=== PATIENT | male | born 1965 | race Two or more races ===

== ENCOUNTER 2017-06-15 07:56 | Emergency (ER) | payer BC, OTHER ==
[2017-06-15 08:18] VITALS: BP 135/68; PULSE 65; TEMP 97.6; BMI 40.7
[2017-06-15] MEDS ORDERED: KETOROLAC TROMETHAMINE 60 MG/2 ML VIAL IM ONE (08:28)
--- NOTE | 2017-06-15 08:32 | PDOC ---
History of Present Illness - General Chief Complaint: Injury Stated Complaint: LEFT ARM PAIN Time Seen by Provider: 06/15/17 08:16 History Source: Patient Exam Limitations: No Limitations - History of Present Illness Initial Comments: 06/15/17 08:27 After lifting heavy laundry bag 2 days ago patient now here with complaints of shoulder and upper back pain with radiation to his left upper arm. States took Aleve with some relief, but woke up this morning and felt the spasm was worse. Denies numbness or tingling to hand, no fever, no cough, no chest pain or palpitations. Occurred: reports: other (3 days) Severity: reports: moderate Pain Location: reports: back, chest, neck Loss of Consciousness: no loss of consciousness Associated Symptoms (Fall): denies symptoms Past History - Travel Traveled outside of the country in the last 30 days: No Close contact w/someone who was outside of country & ill: No - Past Medical History Allergies/Adverse Reactions: Allergies Allergy/AdvReac Type Severity Reaction Status Date / Time No Known Allergies Allergy Verified 06/15/17 08:01 Home Medications: Ambulatory Orders Aspirin [ASA -] 81 mg PO DAILY 06/10/12 Insulin Glargine,Hum.rec.anlog [Lantus Solostar PEN -] 50 units SQ BID 06/10/12 Simvastatin [Zocor -] 20 mg PO HS 06/10/12 Lisinopril [Prinivil] 10 mg PO DAILY 06/22/13 metFORMIN HCL [Glucophage -] 1,000 mg PO BID@0700,1630 #60 tablet 04/03/15 Cyclobenzaprine HCl 10 mg PO Q8H PRN #14 tablet 06/15/17 Anemia: No Asthma: No Cancer: No Cardiac Disorders: No CVA: No COPD: No CHF: No Dementia: No Diabetes: Yes GI Disorders: Yes Disorders: No HTN: Yes Hypercholesterolemia: Yes Kidney Stones: Yes Liver Disease: No Seizures: No Thyroid Disease: No - Surgical History Abdominal Surgery: Yes Cardiac Surgery: No Cholecystectomy: Yes Lung Surgery: No Neurologic Surgery: No Orthopedic Surgery: Yes (Left knee repair) - Immunization History Immunization Up to Date: Yes - Suicide/Smoking/Psychosocial Hx Smoking Status: No Smoking History: Never smoked Have you smoked in the past 12 months: No Number of Cigarettes Smoked Daily: 0 Cigars Per Day: 0 Information on smoking cessation initiated: No Hx Alcohol Use: No Drug/Substance Use Hx: No Substance Use Type: None Hx Substance Use Treatment: No Review of Systems - Review of Systems Able to Perform ROS?: Yes Is the patient limited Bulgarian proficient: Yes Constitutional: Yes: Symptoms Reported, See HPI, Malaise HEENTM: No: Symptoms Reported Respiratory: No: Symptoms reported ABD/GI: No: Symptoms Reported Musculoskeletal: Yes: Symptoms Reported, See HPI, Back Pain All Other Systems: Reviewed and Negative *Physical Exam - Vital Signs Last Vital Signs Temp Pulse Resp BP Pulse Ox 97.6 F 65 19 135/68 97 06/15/17 07:58 06/15/17 07:58 06/15/17 07:58 06/15/17 07:58 06/15/17 07:58 - Physical Exam General Appearance: Yes: Nourished, Appropriately Dressed, Apparent Distress, Mild Distress HEENT: positive: HOLLY, Normal ENT Inspection, TMs Normal, Pharynx Normal Neck: positive: Tender, Other (mildly tender with palpable spasm noted to the paravertebral spinous muscles of left side upper back, point tenderness reproduced with pressure to sternocleidomastoid insertion and extending up into scalp. Range of motion to left arm and shoulder reproduces pain and upper back. 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, Fully Oriented, Alert, Normal Mood/ Affect, Normal Response, Motor Strength 5/5 Progress Note - Progress Note Progress Note: Muscle strain upper back, will treat with NSAIDs and cyclobenzaprine *DC/Admit/Observation/Transfer Diagnosis at time of Disposition: Muscle strain - Discharge Dispostion Disposition: HOME Condition at time of disposition: Stable Admit: No - Referrals Referrals: Stevie Lobato MD [Primary Care Provider] - - Patient Instructions Printed Discharge Instructions: DI for Back Spasm Additional Instructions: Rest, no heavy lifting or exercise until pain is resolved Hot soaks to neck and low back as often as possible/hot showers or Jacuzzis No massage or therapy until spasm is gone Continue ibuprofen 2-200 mg tablets every 6 hours for the next 3 days then as needed for pain and swelling Cyclobenzaprine 1-10mg every 8 hours as needed for spasm If not significant improvement within 24 hours with medication and rest regime, followup with private physician for change in medications and /or therapy. - Post Discharge Activity
[2017-06-15] MEDS ORDERED: KETOROLAC TROMETHAMINE 60 MG/2 ML VIAL ONE (08:33)
== END 2017-06-15 08:40 | disposition home or self-care (01) ==
LOC: JERFT 07:56 → JER 07:56 → JERFT 08:40
PROC: 3E0233Z Introduction of Anti-inflammatory into Muscle, Percutaneous Approach (ICD-10-PCS; principal; 2017-06-15)
DX: S29.012A Strain of muscle and tendon of back wall of thorax, initial encounter (principal); X58.XXXA Exposure to other specified factors, initial encounter; Y93.89 Activity, other specified; Y92.9 Unspecified place or not applicable; E11.9 Type 2 diabetes mellitus without complications; I10 Essential (primary) hypertension; E78.00 Pure hypercholesterolemia, unspecified
CPT/HCPCS: 99281-25

== ENCOUNTER 2017-08-16 17:34 | Inpatient (IN) | payer BC, OTHER ==
--- NOTE | 2017-08-16 17:41 | PDOC ---
Rapid Medical Evaluation Chief Complaint: Abscess Boil Time Seen by Provider: 08/16/17 17:37 Medical Evaluation: Allergies Allergy/AdvReac Type Severity Reaction Status Date / Time No Known Allergies Allergy Verified 08/16/17 17:36 08/16/17 17:38 Pt with PMH of diabetes, presents to the ED c.o abscess to the genital region for 9 days. Pt. thought it would get better. Bleeding now. Exam: ambulatory, NAD, will not sit down Orders: labs, iv insert Pt. to proceed to Main ED for further evaluation
[2017-08-16 19:09] LABS: BASO % 0.8 % (0-2.0); EOS % 1.3 % (0-4.5); HEMATOCRIT 40.8 % (35.4-49); HEMOGLOBIN 13.8 GM/dL (11.7-16.9); LYMPH % 19.1 % (8-40); MCH 28.7 pg (25.7-33.7); MCHC 33.8 g/dl (32.0-35.9); MEAN PLT VOLUME 7.8 fl (7.5-11.1); MONO % 8.2 % (3.8-10.2); NEUT % 70.6 % (42.8-82.8); PLATELET COUNT 238 K/MM3 (134-434); RDW 12.9 % (11.9-15.9); WHITE BLOOD COUNT 11.2 K/mm3 (4.0-10.0)
[2017-08-16 19:25] LABS: URINE APPEARANCE CLEAR; URINE BILIRUBIN NEGATIVE (<2.0 mg/dL); URINE COLOR STRAW; URINE GLUCOSE (UA) 3+ (NEGATIVE); URINE KETONE NEGATIVE (NEGATIVE); URINE LEUK ESTERASE NEGATIVE (NEGATIVE); URINE NITRITE NEGATIVE (NEGATIVE); URINE PROTEIN NEGATIVE (NEGATIVE); URINE UROBILINOGEN NEGATIVE mg/dL (0.2-1.0)
[2017-08-16 19:27] LABS: INR 1.04 (0.82-1.09); PROTHROMBIN TIME (PATIENT) 11.7 SEC (9.7-13.0)
[2017-08-16 19:39] LABS: ALBUMIN 3.6 g/dl (3.4-5.0); ALK PHOS 77 U/L (45-117); ANION GAP 8 (8-16); BILIRUBIN,TOTAL 0.4 mg/dL (0.2-1.0); BLOOD UREA NITROGEN 18 mg/dL (7-18); CALCIUM 8.6 mg/dL (8.5-10.1); CHLORIDE 106 mmol/L (98-107); CO2 23 mmol/L (21-32); CREATININE 0.8 mg/dL (0.7-1.3); GLUCOSE,RANDOM 176 mg/dL (74-106); POTASSIUM 4.6 mmol/L (3.5-5.1); SGOT/AST 13 U/L (15-37); SGPT/ALT 18 U/L (12-78); SODIUM 137 mmol/L (136-145); TOT PROT 7.9 g/dl (6.4-8.2)
--- NOTE | 2017-08-16 21:36 | PDOC ---
*Physical Exam - Vital Signs Last Vital Signs Temp Pulse Resp BP Pulse Ox 98.7 F 103 H 18 156/71 100 08/16/17 17:37 08/16/17 17:37 08/16/17 17:37 08/16/17 17:37 08/16/17 17:37 ED Treatment Course - LABORATORY CBC & Chemistry Diagram: 08/18/17 06:20 08/18/17 06:20 - ADDITIONAL ORDERS Additional order review: Laboratory Results 08/16/17 08/16/17 08/16/17 19:14 18:59 18:59 PT with INR 11.70 INR 1.04 Sodium 137 Potassium 4.6 Chloride 106 Carbon Dioxide 23 Anion Gap 8 BUN 18 D Creatinine 0.8 D Creat Clearance w eGFR > 60 Random Glucose 176 H D Calcium 8.6 Total Bilirubin 0.4 D AST 13 L D ALT 18 D Alkaline Phosphatase 77 D Total Protein 7.9 D Albumin 3.6 D Urine Color Straw Urine Appearance Clear Urine pH 5.0 Ur Specific [place] 1.031 Urine Protein Negative Urine Glucose (UA) 3+ H Urine Ketones Negative Urine Blood Negative Urine Nitrite Negative Urine Bilirubin Negative Urine Urobilinogen Negative Ur Leukocyte Esterase Negative 08/16/17 18:59 RBC 4.80 MCV 85.0 MCHC 33.8 RDW 12.9 MPV 7.8 D Neutrophils % 70.6 D Lymphocytes % 19.1 D Monocytes % 8.2 Eosinophils % 1.3 Basophils % 0.8 D Medical Decision Making - Medical Decision Making 08/16/17 21:36 Pt seen by Midlevel Provider under my direct supervision Ancillary studies reviewed I agree with plan as outlined by Midlevel Provider *DC/Admit/Observation/Transfer Diagnosis at time of Disposition: Perineal abscess - Discharge Dispostion Condition at time of disposition: Stable - Prescriptions - Referrals - Patient Instructions - Post Discharge Activity
--- NOTE | 2017-08-16 21:44 | PDOC ---
History of Present Illness - General Chief Complaint: Abscess Boil Stated Complaint: CYST Time Seen by Provider: 08/16/17 17:37 History Source: Patient Exam Limitations: No Limitations - History of Present Illness Initial Comments: CHIEF COMPLAINT: 52 y/o male with PMH HTN, HLD, IDDM c/o right scrotal abscess x 9 days. HISTORY OF PRESENT ILLNESS: The patient states that since this morning the area has been draining. He denies fever, testicular swelling or tenderness. Vital signs on arrival are notable for pulse of 103. REVIEW OF SYSTEMS: GENERAL/CONSTITUTIONAL: No fever/chills. No weakness. No weight change. HEAD, EYES, EARS, NOSE AND THROAT: No change in vision. No ear pain or discharge. No sore throat. CARDIOVASCULAR: No chest pain or shortness of breath. RESPIRATORY: No cough, wheezing, or hemoptysis. GASTROINTESTINAL: No abd pain, nausea, vomiting, diarrhea. GENITOURINARY: No dysuria, frequency, or change in urination. MUSCULOSKELETAL: No joint or muscle swelling or pain. No neck or back pain. SKIN: +painful abscess that is draining in right testicle region NEUROLOGIC: No headache, vertigo, loss of consciousness, or loss of sensation. PHYSICAL EXAM: GENERAL: The patient is awake, alert, and fully oriented, in no acute distress. HEAD: Normal with no signs of trauma. ENT: Pupils equal, round and reactive to light, extraocular movements intact, sclera anicteric, conjunctiva clear. Neck supple. LUNGS: Clear to auscultation bilaterally. Normal excursion. No respiratory distress or use of accessory muscles. CV: tachycardic with regular rhythm, S1/S2, no MRG. Cap refill < 2 sec. ABDOMEN: Soft, non-distended, non-tender even to deep palpation, no hepatomegaly or splenomegaly, no masses. EXTREMITIES: Normal range of motion, no edema. NEUROLOGICAL: Normal speech, normal gait. CN II-XII grossly intact. SKIN: 4cm abscess to right perineal area with central opening that is actively draining serosangenous fluid Past History - Past Medical History Allergies/Adverse Reactions: Allergies Allergy/AdvReac Type Severity Reaction Status Date / Time No Known Allergies Allergy Verified 08/16/17 17:36 Home Medications: Ambulatory Orders Aspirin [ASA -] 81 mg PO DAILY 06/10/12 Insulin Glargine,Hum.rec.anlog [Lantus Solostar PEN -] 50 units SQ BID 06/10/12 Simvastatin [Zocor -] 20 mg PO HS 06/10/12 Lisinopril [Prinivil] 10 mg PO DAILY 06/22/13 metFORMIN HCL [Glucophage -] 1,000 mg PO BID@0700,1630 #60 tablet 04/03/15 Cyclobenzaprine HCl 10 mg PO Q8H PRN #14 tablet 06/15/17 Anemia: No Asthma: No Cancer: No Cardiac Disorders: No CVA: No COPD: No CHF: No DVT: No Dementia: No Diabetes: Yes GI Disorders: Yes Disorders: No HTN: Yes Hypercholesterolemia: Yes Kidney Stones: Yes Liver Disease: No Seizures: No Thyroid Disease: No - Surgical History Abdominal Surgery: Yes Cardiac Surgery: No Cholecystectomy: Yes Lung Surgery: No Neurologic Surgery: No Orthopedic Surgery: Yes (Left knee repair) - Immunization History Immunization Up to Date: Yes - Suicide/Smoking/Psychosocial Hx Smoking Status: No Smoking History: Never smoked Have you smoked in the past 12 months: No Number of Cigarettes Smoked Daily: 0 Cigars Per Day: 0 Information on smoking cessation initiated: No Hx Alcohol Use: No Drug/Substance Use Hx: No Substance Use Type: None Hx Substance Use Treatment: No *Physical Exam - Vital Signs Last Vital Signs Temp Pulse Resp BP Pulse Ox 98.7 F 103 H 18 156/71 100 08/16/17 17:37 08/16/17 17:37 08/16/17 17:37 08/16/17 17:37 08/16/17 17:37 ED Treatment Course - LABORATORY CBC & Chemistry Diagram: 08/16/17 18:59 08/16/17 18:59 - ADDITIONAL ORDERS Additional order review: Laboratory Results 08/16/17 08/16/17 08/16/17 19:14 18:59 18:59 PT with INR 11.70 INR 1.04 Sodium 137 Potassium 4.6 Chloride 106 Carbon Dioxide 23 Anion Gap 8 BUN 18 D Creatinine 0.8 D Creat Clearance w eGFR > 60 Random Glucose 176 H D Calcium 8.6 Total Bilirubin 0.4 D AST 13 L D ALT 18 D Alkaline Phosphatase 77 D Total Protein 7.9 D Albumin 3.6 D Urine Color Straw Urine Appearance Clear Urine pH 5.0 Ur Specific [place] 1.031 Urine Protein Negative Urine Glucose (UA) 3+ H Urine Ketones Negative Urine Blood Negative Urine Nitrite Negative Urine Bilirubin Negative Urine Urobilinogen Negative Ur Leukocyte Esterase Negative 08/16/17 18:59 RBC 4.80 MCV 85.0 MCHC 33.8 RDW 12.9 MPV 7.8 D Neutrophils % 70.6 D Lymphocytes % 19.1 D Monocytes % 8.2 Eosinophils % 1.3 Basophils % 0.8 D Medical Decision Making - Medical Decision Making A/P: 52 y/o male, insulin dependent diabetic, with a draining right perineal abscess. Labs were ordered in triage. WBC count of 11.2; mildly tachycardic. Will do wound culture Spoke with Dr. Lobato, patient's PMD, and he would like him admitted to Dr. Crowe. Dr. Crowe's patients being covered by Hospitalist. Microblogged hospitalist. Patient admitted to Hospitalist service. IV Clindamycin ordered. *DC/Admit/Observation/Transfer Diagnosis at time of Disposition: Perineal abscess - Discharge Dispostion Condition at time of disposition: Stable Decision to Admit order: Yes - Referrals - Patient Instructions - Post Discharge Activity
--- NOTE | 2017-08-16 22:32 | HP ---
CHIEF COMPLAINT: Scrotal Abscess, Pain PCP: Dr. Tan HISTORY OF PRESENT ILLNESS: 52 y/o man with a PMH IDDM, HTN, HLD. Who presents to the ED with pain, drainage from scrotal abscess x 9 days. Patient reports it started as a pimple to the scrotal region and became bigger over time. He reports having his squeezing the abscess and having bloody then white drainage coming out. Patient reports increase pain when walking and sitting. Patient denies fever and chills. ER course was notable for: (1) WBC 11.0 (2) (3) Recent Travel: None PAST MEDICAL HISTORY: See HPI PAST SURGICAL HISTORY: Cholecystectomy Social History: Smoking: Never Alcohol: None Drugs: None Family History: Allergies No Known Allergies Allergy (Verified 08/16/17 17:36) HOME MEDICATIONS: Home Medications Medication Instructions Recorded Aspirin [ASA -] 81 mg PO DAILY 06/10/12 Insulin Glargine,Hum.rec.anlog 50 units SQ BID 06/10/12 [Lantus Solostar PEN -] Simvastatin [Zocor -] 20 mg PO HS 06/10/12 Lisinopril [Prinivil] 10 mg PO DAILY 06/22/13 metFORMIN HCL [Glucophage -] 1,000 mg PO BID@0700,1630 #60 04/03/15 tablet Cyclobenzaprine HCl 10 mg PO Q8H PRN #14 tablet 06/15/17 REVIEW OF SYSTEMS CONSTITUTIONAL: Absent: fever, chills, diaphoresis, generalized weakness, malaise, loss of appetite, weight change HEENT: Absent: rhinorrhea, nasal congestion, throat pain, throat swelling, difficulty swallowing, mouth swelling, ear pain, eye pain, visual changes CARDIOVASCULAR: Absent: chest pain, syncope, palpitations, irregular heart rate, lightheadedness , peripheral edema RESPIRATORY: Absent: cough, shortness of breath, dyspnea with exertion, orthopnea, wheezing, stridor, hemoptysis GASTROINTESTINAL: Absent: abdominal pain, abdominal distension, nausea, vomiting, diarrhea, constipation, melena, hematochezia GENITOURINARY: scrotal abscess, pain Absent: dysuria, frequency, urgency, hesitancy, hematuria, flank pain, genital pain MUSCULOSKELETAL: Absent: myalgia, arthralgia, joint swelling, back pain, neck pain SKIN: Absent: rash, itching, pallor HEMATOLOGIC/IMMUNOLOGIC: Absent: easy bleeding, easy bruising, lymphadenopathy, frequent infections ENDOCRINE: Absent: unexplained weight gain, unexplained weight loss, heat intolerance, cold intolerance NEUROLOGIC: Absent: headache, focal weakness or paresthesias, dizziness, unsteady gait, seizure, mental status changes, bladder or bowel incontinence PSYCHIATRIC: Absent: anxiety, depression, suicidal or homicidal ideation, hallucinations. PHYSICAL EXAMINATION Vital Signs - 24 hr 08/16/17 17:37 Temperature 98.7 F Pulse Rate 103 H Respiratory 18 Rate Blood Pressure 156/71 O2 Sat by Pulse 100 Oximetry (%) GENERAL: Severe Obesity, awake, alert, and fully oriented, in no acute distress. HEAD: Normal with no signs of trauma. EYES: Pupils equal, round and reactive to light, extraocular movements intact, sclera anicteric, conjunctiva clear. No lid lag. EARS, NOSE, THROAT: Ears normal, nares patent, oropharynx clear without exudates. Moist mucous membranes. NECK: Normal range of motion, supple without lymphadenopathy, JVD, or masses. LUNGS: Breath sounds equal, clear to auscultation bilaterally. No wheezes, and no crackles. No accessory muscle use. HEART: Regular rate and rhythm, normal S1 and S2 without murmur, rub or gallop. ABDOMEN: Soft, nontender, not distended, normoactive bowel sounds, no guarding, no rebound, no masses. No hepatomegaly or splenomegaly. GENITOURINARY: Erythema, swelling, tenderness to R-scrotum, non fluctuant MUSCULOSKELETAL: Normal range of motion at all joints. No bony deformities or tenderness. No CVA tenderness. UPPER EXTREMITIES: 2+ pulses, warm, well-perfused. No cyanosis. No clubbing. No peripheral edema. LOWER EXTREMITIES: 2+ pulses, warm, well-perfused. No calf tenderness. No peripheral edema. NEUROLOGICAL: Cranial nerves II-XII intact. Normal speech. Gait not observed. PSYCHIATRIC: Cooperative. Good eye contact. Appropriate mood and affect. SKIN: Warm, dry, normal turgor, no rashes or lesions noted, normal capillary refill. Laboratory Results - last 24 hr 08/16/17 08/16/17 08/16/17 18:59 18:59 18:59 WBC 11.2 H RBC 4.80 Hgb 13.8 D Hct 40.8 D MCV 85.0 MCH 28.7 MCHC 33.8 RDW 12.9 Plt Count 238 MPV 7.8 D Neutrophils % 70.6 D Lymphocytes % 19.1 D Monocytes % 8.2 Eosinophils % 1.3 Basophils % 0.8 D Nucleated RBC % 0 PT with INR 11.70 INR 1.04 Sodium 137 Potassium 4.6 Chloride 106 Carbon Dioxide 23 Anion Gap 8 BUN 18 D Creatinine 0.8 D Creat Clearance w eGFR > 60 Random Glucose 176 H D Calcium 8.6 Total Bilirubin 0.4 D AST 13 L D ALT 18 D Alkaline Phosphatase 77 D Total Protein 7.9 D Albumin 3.6 D Urine Color Urine Appearance Urine pH Ur Specific [place] Urine Protein Urine Glucose (UA) Urine Ketones Urine Blood Urine Nitrite Urine Bilirubin Urine Urobilinogen Ur Leukocyte Esterase 08/16/17 19:14 WBC RBC Hgb Hct MCV MCH MCHC RDW Plt Count MPV Neutrophils % Lymphocytes % Monocytes % Eosinophils % Basophils % Nucleated RBC % PT with INR INR Sodium Potassium Chloride Carbon Dioxide Anion Gap BUN Creatinine Creat Clearance w eGFR Random Glucose Calcium Total Bilirubin AST ALT Alkaline Phosphatase Total Protein Albumin Urine Color Straw Urine Appearance Clear Urine pH 5.0 Ur Specific [place] 1.031 Urine Protein Negative Urine Glucose (UA) 3+ H Urine Ketones Negative Urine Blood Negative Urine Nitrite Negative Urine Bilirubin Negative Urine Urobilinogen Negative Ur Leukocyte Esterase Negative ASSESSMENT/PLAN: This is a 52 y/o man with PMH IDDM, HTN, HLD. Admitted for Scrotal Abscess. Admit to M/S for Scrotal Abscess Wound culture-pending Blood culture-pending Urine culture-pending Started on ABX in ED Appreciate Surgical Consult Appreciate ID Consult Monitor CBC, BMP IV fluids Monitor vitals NPO Morphine Sulfate prn Continue Lisinopril, Statin Will hold Asa, Metformin, Insulin for now until diet resumed Preop labs EKG-pending Chest Xray-pending Scrotal US- pending DVT ppx- SCDs, Heparin SQ Code Status: Full Code Dispo: Requires Inpatient Care Problem List - Problem (1) Abscess of scrotum Code(s): N49.2 - INFLAMMATORY DISORDERS OF SCROTUM (2) Diabetes Code(s): E11.9 - TYPE 2 DIABETES MELLITUS WITHOUT COMPLICATIONS (3) HTN (hypertension) Code(s): I10 - ESSENTIAL (PRIMARY) HYPERTENSION Visit type - Emergency Visit Emergency Visit: Yes ED Registration Date: 08/16/17 Care time: The patient presented to the Emergency Department on the above date and was hospitalized for further evaluation of their emergent condition. - New Patient This patient is new to me today: Yes Date on this admission: 08/17/17 - Critical Care Critical Care patient: No Hospitalist Screening - Colonoscopy Questionnaire Colonoscopy Questionnaire: Colonoscopy Questionnaire - Patient: 50 - 75 years old and never had a screening colonoscopy: No History of colon or rectal polyps, or CA: No History of IBD, Crohn's disease or UC: No History of abdominal radiation therapy as a child: No - Relative: 1 with colon or rectal CA, or polyps at age 60 or younger: No Colon or rectal CA diagnosed at age 45 or younger: No Multiple relatives with colon or rectal CA: No - Outcome: Screening Result: Negative Screen
[2017-08-16] MEDS ORDERED: CLINDAMYCIN 600MG PREMIX IVPB 600 MG/50 ML BAG IVPB ONE (23:06)
[2017-08-17] MEDS ORDERED: CLINDAMYCIN 600MG PREMIX IVPB 0 MG/0 ML BAG IVPB ONE (00:02)
[2017-08-17] MEDS ORDERED: CLINDAMYCIN 600MG PREMIX IVPB 600 MG/50 ML BAG IVPB ONE (00:10)
[2017-08-17] MEDS ORDERED: DEXTROSE 5%-0.45% SALINE 1,000 ML IV SCH ×2 (01:30→17:45)
[2017-08-17] MEDS: CLINDAMYCIN 600MG PREMIX IVPB 600 MG/50 ML BAG IVPB SCH ×2 (06:15→11:57)
[2017-08-17] MEDS ORDERED: morphine SULFATE 4 MG/ML VIAL IVPUSH PRN (07:43)
[2017-08-17 08:32] LABS: BASO % 0.8 % (0-2.0); EOS % 2.2 % (0-4.5); HEMATOCRIT 38.5 % (35.4-49); HEMOGLOBIN 13.3 GM/dL (11.7-16.9); LYMPH % 24.9 % (8-40); MCH 29.2 pg (25.7-33.7); MCHC 34.4 g/dl (32.0-35.9); MEAN CELL VOLUME 84.8 fl (80-96); MEAN PLT VOLUME 8.1 fl (7.5-11.1); MONO % 11.4 % (3.8-10.2); NEUT % 60.7 % (42.8-82.8); PLATELET COUNT 219 K/MM3 (134-434); RBC 4.55 M/mm3 (4.00-5.60); RDW 12.9 % (11.9-15.9)
--- NOTE | 2017-08-17 08:45 | PN ---
Teaching Attending Note Name of Resident: Brittany Ramriez ATTENDING PHYSICIAN STATEMENT I saw and evaluated the patient. I reviewed the resident's note and discussed the case with the resident. I agree with the resident's findings and plan as documented. SUBJECTIVE: 52 year old male with scrotal abscess for 10 days Denies fever or severe pain OBJECTIVE: Exam right testes with fluctuant abscess no gas crepitance tender to touch ASSESSMENT AND PLAN: Diabetic with SQ scrotal abscess ? Staph GNR Doubt fasciitis Vanco Ceftriaxone metronidazole and surgery for I&D CRP [place] Problem List - Problems (1) Abscess of scrotum Code(s): N49.2 - INFLAMMATORY DISORDERS OF SCROTUM (2) Diabetes Code(s): E11.9 - TYPE 2 DIABETES MELLITUS WITHOUT COMPLICATIONS
[2017-08-17 09:28] LABS: CHLORIDE 106 mmol/L (98-107); POTASSIUM 4.1 mmol/L (3.5-5.1); SODIUM 137 mmol/L (136-145)
--- NOTE | 2017-08-17 09:50 | CONSULT ---
Consultation: REQUESTING PROVIDER: CONSULT REQUEST: We have been asked to medically evaluate this patient for scrotal abscess. HISTORY OF PRESENT ILLNESS: 52M with PMH of DM, htn, hld, presents with scrotal abscess x 10 days. Abscess started bleeding yesterday, prompting pt to call his PCP who told him to come to the ER. Pt denies trauma to the area, recent travel, bug bites, hx of skin infections. Pt reports abscess just appeared, unprovoked. Pt reports is blood glucose usually runs 150-200. Pt denies fever, chills, chest pain, sob, abdominal pain, dysuria, hematuria. REVIEW OF SYSTEMS: CONSTITUTIONAL: Absent: fever, chills, diaphoresis, generalized weakness HEENT: Absent: rhinorrhea, nasal congestion, ear pain, eye pain, visual changes CARDIOVASCULAR: Absent: chest pain, palpitations, irregular heart rate, peripheral edema RESPIRATORY: Absent: cough, shortness of breath, wheezing, stridor GASTROINTESTINAL: Absent: abdominal pain, abdominal distension, nausea, vomiting, diarrhea, constipation GENITOURINARY: Absent: dysuria, hematuria MUSCULOSKELETAL: Absent: myalgia, arthralgia, joint swelling, back pain, neck pain SKIN: scrotal abscess Absent: rash, itching, pallor HEMATOLOGIC/IMMUNOLOGIC: Absent: easy bleeding, easy bruising, lymphadenopathy, frequent infections NEUROLOGIC: Absent: headache, focal weakness or paresthesias PSYCHIATRIC: Absent: anxiety, depression PHYSICAL EXAMINATION Vital Signs - 24 hr 08/16/17 08/17/17 08/17/17 17:37 02:00 04:14 Temperature 98.7 F 98.5 F Pulse Rate 103 H Pulse Rate [ 72 Apical] Respiratory 18 16 Rate Blood Pressure 156/71 Blood Pressure 131/79 [Right Arm] O2 Sat by Pulse 100 99 99 Oximetry (%) 08/17/17 06:44 Temperature 98.2 F Pulse Rate Pulse Rate [ 66 Apical] Respiratory 20 Rate Blood Pressure Blood Pressure 115/76 [Right Arm] O2 Sat by Pulse 99 Oximetry (%) GENERAL: Awake, alert, and fully oriented, in no acute distress. LUNGS: Breath sounds equal, clear to auscultation bilaterally. No wheezes, and no crackles. No accessory muscle use. HEART: Regular rate and rhythm, normal S1 and S2 without murmur, rub or gallop. ABDOMEN: Soft, nontender, not distended, normoactive bowel sounds, no guarding. LOWER EXTREMITIES: Warm, well-perfused. No calf tenderness. No peripheral edema. PSYCHIATRIC: Cooperative. Good eye contact. Appropriate mood and affect. SKIN: Right scrotum with 5cm x 2cm abscess, indurated, no crepitus, tender to palpation, draining purulent material. Laboratory Results - last 24 hr 08/16/17 08/16/17 08/16/17 18:59 18:59 18:59 WBC 11.2 H RBC 4.80 Hgb 13.8 D Hct 40.8 D MCV 85.0 MCH 28.7 MCHC 33.8 RDW 12.9 Plt Count 238 MPV 7.8 D Neutrophils % 70.6 D Lymphocytes % 19.1 D Monocytes % 8.2 Eosinophils % 1.3 Basophils % 0.8 D Nucleated RBC % 0 PT with INR 11.70 INR 1.04 Sodium 137 Potassium 4.6 Chloride 106 Carbon Dioxide 23 Anion Gap 8 BUN 18 D Creatinine 0.8 D Creat Clearance w eGFR > 60 Random Glucose 176 H D Calcium 8.6 Total Bilirubin 0.4 D AST 13 L D ALT 18 D Alkaline Phosphatase 77 D Total Protein 7.9 D Albumin 3.6 D Urine Color Urine Appearance Urine pH Ur Specific Orange Urine Protein Urine Glucose (UA) Urine Ketones Urine Blood Urine Nitrite Urine Bilirubin Urine Urobilinogen Ur Leukocyte Esterase 08/16/17 08/17/17 08/17/17 19:14 06:38 06:38 WBC 9.0 RBC 4.55 Hgb 13.3 Hct 38.5 MCV 84.8 MCH 29.2 MCHC 34.4 RDW 12.9 Plt Count 219 MPV 8.1 Neutrophils % 60.7 Lymphocytes % 24.9 D Monocytes % 11.4 H Eosinophils % 2.2 Basophils % 0.8 Nucleated RBC % 0 PT with INR INR Sodium 137 Potassium 4.1 Chloride 106 Carbon Dioxide Anion Gap BUN Creatinine Creat Clearance w eGFR Random Glucose Calcium Total Bilirubin AST ALT Alkaline Phosphatase Total Protein Albumin Urine Color Straw Urine Appearance Clear Urine pH 5.0 Ur Specific Orange 1.031 Urine Protein Negative Urine Glucose (UA) 3+ H Urine Ketones Negative Urine Blood Negative Urine Nitrite Negative Urine Bilirubin Negative Urine Urobilinogen Negative Ur Leukocyte Esterase Negative Active Medications Generic Name Dose Route Start Last Admin Trade Name Freq PRN Reason Stop Dose Admin Heparin Sodium (Porcine) 5,000 unit 08/17/17 10:00 Heparin - SQ BID CHANI Dextrose/Sodium Chloride 1,000 mls @ 100 mls/hr 08/17/17 01:30 08/17/17 02:14 D5-1/2ns - IV 100 mls/hr ASDIR CHANI Administration Ceftriaxone Sodium 2 gm/ 100 mls @ 100 mls/hr 08/17/17 10:00 Dextrose IVPB DAILY CHANI Metronidazole 500 mg in 100 mls @ 100 mls/hr 08/17/17 10:00 Flagyl 500mg Premixed Ivpb - IVPB Q8H-IV CHANI Vancomycin HCl 1,750 mg/ 500 mls @ 250 mls/hr 08/17/17 10:00 Dextrose IVPB BID@1000,2200 CHANI Protocol Morphine Sulfate 4 mg 08/17/17 07:43 Morphine Sulfate IVPUSH Q6H PRN PAIN LEVEL 7 - 10 ASSESSMENT/PLAN: 52M with PMH of DM, htn, hld, presents with scrotal abscess x 10 days. # scrotal abscess - possible Staph and/or GNB, fasciitis unlikely - pt is afebrile - leukocytosis resolved - f/u CRP - f/u blood, urine, wound cultures - f/u scrotal US - pt received 2 doses of IV Clindamycin in ER - IV Vancomycin, IV Ceftrixone, IV Flagyl - Surgery Consult for possible I&D # DM - care per primary team Plan discussed with Dr. Guerra. Dispo: We will continue to follow the patient. Thank you for this consultative opportunity. Visit type - Emergency Visit Emergency Visit: Yes ED Registration Date: 08/16/17 Care time: The patient presented to the Emergency Department on the above date and was hospitalized for further evaluation of their emergent condition. - New Patient This patient is new to me today: Yes Date on this admission: 08/17/17 - Critical Care Critical Care patient: No
[2017-08-17] MEDS ORDERED: HEPARIN NA (PORCINE) 5,000 UNITS/ML 1ML VIAL SQ SCH (10:00)
[2017-08-17] MEDS ORDERED: VANCOMYCIN 1,750 MG in DEXTROSE 5%-WATER - 500 ML IVPB SCH (10:00)
[2017-08-17] MEDS ORDERED: CEFTRIAXONE 2 GM in DEXTROSE 5%-WATER 100 ML IVPB SCH (10:00)
[2017-08-17 10:26] LABS: ALBUMIN 3.2 g/dl (3.4-5.0); ALK PHOS 69 U/L (45-117); ANION GAP 8 (8-16); BILIRUBIN,TOTAL 0.6 mg/dL (0.2-1.0); BLOOD UREA NITROGEN 15 mg/dL (7-18); CALCIUM 8.2 mg/dL (8.5-10.1); CO2 23 mmol/L (21-32); CREATININE 0.7 mg/dL (0.7-1.3); GLUCOSE,RANDOM 137 mg/dL (74-106); SGOT/AST 11 U/L (15-37); SGPT/ALT 17 U/L (12-78); TOT PROT 7.1 g/dl (6.4-8.2)
[2017-08-17] MEDS ORDERED: CEFTRIAXONE 2 GM in SODIUM CHLORIDE 100 ML IVPB SCH (11:23)
[2017-08-17] MEDS ORDERED: CYCLOBENZAPRINE HCL 10 MG TABLET (FP) PO PRN ×2 (11:26→20:27)
--- NOTE | 2017-08-17 11:27 | PN ---
Progress Note, Physician Chief Complaint: Right scrotal abscess History of Present Illness: NAD C/o pain right scrotum u/S scrotum seen by ID IV abx - Current Medication List Current Medications: Active Medications Heparin Sodium (Porcine) (Heparin -) 5,000 unit SQ BID CHANI Dextrose/Sodium Chloride (D5-1/2ns -) 1,000 mls @ 100 mls/hr IV ASDIR CHANI Last Admin: 08/17/17 02:14 Dose: 100 mls/hr Ceftriaxone Sodium 2 gm/ (Dextrose) 100 mls @ 100 mls/hr IVPB DAILY CHANI Metronidazole (Flagyl 500mg Premixed Ivpb -) 500 mg in 100 mls @ 100 mls/hr IVPB Q8H-IV CHANI Vancomycin HCl 1,750 mg/ (Dextrose) 500 mls @ 250 mls/hr IVPB BID@1000,2200 CHANI ; Protocol Morphine Sulfate (Morphine Sulfate) 4 mg IVPUSH Q6H PRN PRN Reason: PAIN LEVEL 7 - 10 - Objective Vital Signs: Vital Signs Temperature 98.2 F 08/17/17 06:44 Pulse Rate 66 08/17/17 06:44 Respiratory Rate 20 08/17/17 06:44 Blood Pressure 115/76 08/17/17 06:44 O2 Sat by Pulse Oximetry (%) 99 08/17/17 06:44 Constitutional: Yes: Well Nourished, No Distress, Calm Cardiovascular: Yes: Regular Rate and Rhythm Respiratory: Yes: Regular Gastrointestinal: Yes: Normal Bowel Sounds, Soft Genitourinary: Yes: Scrotal Edema (right) Musculoskeletal: Yes: WNL Extremities: Yes: WNL Neurological: Yes: Alert, Oriented Psychiatric: Yes: Alert, Oriented Labs: CBC, BMP 08/17/17 06:38 08/17/17 06:38 INR, PTT INR 1.04 (0.82-1.09) 08/16/17 18:59 Problem List - Problems (1) Abscess of scrotum Assessment/Plan: -Seen by ID -IV abx -To be seen by surgery -U/S scrotum pending -Wound culture pending Code(s): N49.2 - INFLAMMATORY DISORDERS OF SCROTUM (2) HTN (hypertension) Assessment/Plan: -restart home medications -low sodium diet Code(s): I10 - ESSENTIAL (PRIMARY) HYPERTENSION (3) Diabetes Assessment/Plan: -BGM achs -Diabetic diet -restart glargine -Novolog sliding scale -repeat A1C -RD consult Code(s): E11.9 - TYPE 2 DIABETES MELLITUS WITHOUT COMPLICATIONS Assessment/Plan see problem list dvt prophylaxis
[2017-08-17] MEDS ORDERED: ASPIRIN 81 MG CHEWABLE TABLETS PO SCH (11:30)
[2017-08-17] MEDS ORDERED: LISINOPRIL 10 MG TABLET (FP) PO SCH (11:30)
[2017-08-17 12:44] LABS: CHOLESTEROL 120 mg/dL (50-200); HDL CHOLESTEROL 34 mg/dL (40-60); TRIGLYCERIDES 94 mg/dL (35-160)
[2017-08-17] MEDS ORDERED: ASPIRIN 81 MG CHEWABLE TABLETS ONE (13:48)
[2017-08-17] MEDS ORDERED: LISINOPRIL 5 MG TABLET (FP) ONE (13:48)
--- NOTE | 2017-08-17 13:58 | CONSULT ---
<Tyron Simon - Last Filed: 08/17/17 13:52> - Consultation REQUESTING PROVIDER: CONSULT REQUEST: We have been asked to surgically evaluate this patient for perineal abscess PCP:Ayaka Crowe HISTORY OF PRESENT ILLNESS: 52M presents to the ED with complaint of painful swelling in his perineal area x 9 days. Pt states that the swelling first appeared as a "pimple" but the swelling got larger and more painful over the next 9 days. Pt states that it has been draining since yesterday. Pt denies any fever, chills, n/v. Pt denies previous issues with abscesses or skin infections. PMHx: DM, HTN, HLD Home Medications Medication Instructions Recorded Aspirin [ASA -] 81 mg PO DAILY 06/10/12 Insulin Glargine,Hum.rec.anlog 50 units SQ BID 06/10/12 [Lantus Solostar PEN -] Simvastatin [Zocor -] 20 mg PO HS 06/10/12 Lisinopril [Prinivil] 10 mg PO DAILY 06/22/13 metFORMIN HCL [Glucophage -] 1,000 mg PO BID@0700,1630 #60 04/03/15 tablet Cyclobenzaprine HCl 10 mg PO Q8H PRN #14 tablet 06/15/17 Allergies Allergy/AdvReac Type Severity Reaction Status Date / Time No Known Allergies Allergy Verified 08/16/17 17:36 REVIEW OF SYSTEMS: CONSTITUTIONAL: Absent: fever, chills, diaphoresis, generalized weakness, malaise, loss of appetite, weight change GASTROINTESTINAL: Absent: abdominal pain, abdominal distension, nausea, vomiting, diarrhea, constipation, melena, hematochezia GENITOURINARY: Absent: dysuria, frequency, urgency, hesitancy, hematuria, PHYSICAL EXAM: GENERAL: Awake, alert, and fully oriented, in no acute distress. HEAD: Normal with no signs of trauma. EYES: PERRL, sclera anicteric, conjunctiva clear. ABDOMEN: Soft, nontender, not distended, no guarding, no rebound, no masses. No organomegaly. NEUROLOGICAL: Normal speech, gait not observed. PSYCH: Cooperative. Good eye contact. Appropriate mood and affect. SKIN: Right perineal area shows 4cm x 8 cm fluctulant erythetamous area with pinhole draining pus. Vital Signs Temperature 98.2 F 08/17/17 06:44 Pulse Rate 66 08/17/17 06:44 Respiratory Rate 20 08/17/17 06:44 Blood Pressure 115/76 08/17/17 06:44 O2 Sat by Pulse Oximetry (%) 99 08/17/17 06:44 Lab Results WBC 9.0 K/mm3 (4.0-10.0) 08/17/17 06:38 RBC 4.55 M/mm3 (4.00-5.60) 08/17/17 06:38 Hgb 13.3 GM/dL (11.7-16.9) 08/17/17 06:38 Hct 38.5 % (35.4-49) 08/17/17 06:38 MCV 84.8 fl (80-96) 08/17/17 06:38 MCHC 34.4 g/dl (32.0-35.9) 08/17/17 06:38 RDW 12.9 % (11.9-15.9) 08/17/17 06:38 Plt Count 219 K/MM3 (134-434) 08/17/17 06:38 Sodium 137 mmol/L (136-145) 08/17/17 06:38 Potassium 4.1 mmol/L (3.5-5.1) 08/17/17 06:38 Chloride 106 mmol/L (98-107) 08/17/17 06:38 Carbon Dioxide 23 mmol/L (21-32) 08/17/17 06:38 Anion Gap 8 (8-16) 08/17/17 06:38 BUN 15 mg/dL (7-18) 08/17/17 06:38 Creatinine 0.7 mg/dL (0.7-1.3) 08/17/17 06:38 Random Glucose 137 mg/dL (74-106) H D 08/17/17 06:38 Calcium 8.2 mg/dL (8.5-10.1) L 08/17/17 06:38 INR 1.04 (0.82-1.09) 08/16/17 18:59 Problem List - Problems (1) Perineal abscess Assessment/Plan: 52yo M with perineal abscess Plan: -pt will be taken to the OR for I&D and washout of abscess -Make NPO -cont abx per ID -medically manage glucose Case discussed with Dr. Hill who agrees with plan Code(s): L02.215 - CUTANEOUS ABSCESS OF PERINEUM <Barrett Hill - Last Filed: 08/17/17 18:05> - Consultation REQUESTING PROVIDER: CONSULT REQUEST: We have been asked to surgically evaluate this patient for ( specify). PCP:Ayaka Crowe HISTORY OF PRESENT ILLNESS: PMHx: PSHx: Home Medications Medication Instructions Recorded Aspirin [ASA -] 81 mg PO DAILY 06/10/12 Insulin Glargine,Hum.rec.anlog 50 units SQ BID 06/10/12 [Lantus Solostar PEN -] Simvastatin [Zocor -] 20 mg PO HS 06/10/12 Lisinopril [Prinivil] 10 mg PO DAILY 06/22/13 metFORMIN HCL [Glucophage -] 1,000 mg PO BID@0700,1630 #60 04/03/15 tablet Cyclobenzaprine HCl 10 mg PO Q8H PRN #14 tablet 06/15/17 Allergies Allergy/AdvReac Type Severity Reaction Status Date / Time No Known Allergies Allergy Verified 08/16/17 17:36 REVIEW OF SYSTEMS: CONSTITUTIONAL: Absent: fever, chills, diaphoresis, generalized weakness, malaise, loss of appetite, weight change CARDIOVASCULAR: Absent: chest pain, syncope, palpitations, irregular heart rate, lightheadedness , peripheral edema RESPIRATORY: Absent: cough, shortness of breath, dyspnea with exertion, wheezing, stridor, hemoptysis GASTROINTESTINAL: Absent: abdominal pain, abdominal distension, nausea, vomiting, diarrhea, constipation, melena, hematochezia GENITOURINARY: Absent: dysuria, frequency, urgency, hesitancy, hematuria, flank pain, genital pain MUSCULOSKELETAL: Absent: myalgia, arthralgia, joint swelling, back pain, neck pain SKIN: Absent: rash, itching, pallor HEMATOLOGIC/IMMUNOLOGIC: Absent: easy bleeding, easy bruising, lymphadenopathy NEUROLOGIC: Absent: headache, focal weakness, paresthesias, dizziness, unsteady gait, seizure, mental status changes, bladder or bowel incontinence PSYCHIATRIC: Absent: anxiety, depression, suicidal or homicidal ideation, hallucinations. PHYSICAL EXAM: GENERAL: Awake, alert, and fully oriented, in no acute distress. HEAD: Normal with no signs of trauma. EYES: PERRL, sclera anicteric, conjunctiva clear. NECK: Normal ROM, supple without lymphadenopathy, JVD, or masses. LUNGS: Clear to auscultation bilat anteriorly. No wheezes, and no crackles. No accessory muscle use. HEART: Regular rate and rhythm. No murmurs ABDOMEN: Soft, nontender, not distended, normoactive bowel sounds, no guarding, no rebound, no masses. No organomegaly. MUSCULOSKELETAL: Normal ROM at all joints. No bony deformities or tenderness. No CVA tenderness. UPPER EXTREMITIES: 2+ pulses, warm, well-perfused. No cyanosis. Cap refill <2 seconds. No peripheral edema. LOWER EXTREMITIES: 2+ pulses, warm, well-perfused. No calf tenderness. No peripheral edema. NEUROLOGICAL: Normal speech, gait not observed. PSYCH: Cooperative. Good eye contact. Appropriate mood and affect. SKIN: Warm, dry, normal turgor, no rashes or lesions noted. Vital Signs Temperature 98.2 F 08/17/17 17:38 Pulse Rate 77 08/17/17 17:38 Respiratory Rate 18 08/17/17 17:38 Blood Pressure 131/77 08/17/17 17:38 O2 Sat by Pulse Oximetry (%) 98 08/17/17 15:04 Lab Results WBC 9.0 K/mm3 (4.0-10.0) 08/17/17 06:38 RBC 4.55 M/mm3 (4.00-5.60) 08/17/17 06:38 Hgb 13.3 GM/dL (11.7-16.9) 08/17/17 06:38 Hct 38.5 % (35.4-49) 08/17/17 06:38 MCV 84.8 fl (80-96) 08/17/17 06:38 MCHC 34.4 g/dl (32.0-35.9) 08/17/17 06:38 RDW 12.9 % (11.9-15.9) 08/17/17 06:38 Plt Count 219 K/MM3 (134-434) 08/17/17 06:38 Sodium 137 mmol/L (136-145) 08/17/17 06:38 Potassium 4.1 mmol/L (3.5-5.1) 08/17/17 06:38 Chloride 106 mmol/L (98-107) 08/17/17 06:38 Carbon Dioxide 23 mmol/L (21-32) 08/17/17 06:38 Anion Gap 8 (8-16) 08/17/17 06:38 BUN 15 mg/dL (7-18) 08/17/17 06:38 Creatinine 0.7 mg/dL (0.7-1.3) 08/17/17 06:38 Random Glucose 137 mg/dL (74-106) H D 08/17/17 06:38 Calcium 8.2 mg/dL (8.5-10.1) L 08/17/17 06:38 INR 1.04 (0.82-1.09) 08/16/17 18:59 Agree Perineal abscess For incision and drainage Antibiotics per ID Daily wound packing Glycemic control
[2017-08-17 15:01] VITALS: BMI 41.0
[2017-08-17] MEDS ORDERED: INSULIN SLIDING SCALE (NOVOLOG) 1 VIAL SQ SCH (16:30)
[2017-08-17] MEDS ORDERED: MIDAZOLAM HCL 2 MG/2 ML SINGLE DOSE VIAL ONE ×2 (19:07→19:21)
[2017-08-17] MEDS ORDERED: BUPIVACAINE 0.75% IN DEXTROSE/PF 2ML AMPULE NR ONE (19:07)
[2017-08-17] MEDS ORDERED: LIDOCAINE 1%/EPI 1:100000 (20 ML MULTI DOSE VIAL) ONE (19:30)
[2017-08-17] MEDS ORDERED: LIDOCAINE 1%/EPI 1:100000 (20 ML MULTI DOSE VIAL) IJ ONE (19:32)
[2017-08-17] MEDS ORDERED: oxyCODONE HCL 5 MG TABLET PO PRN (19:44)
[2017-08-17] MEDS ORDERED: ONDANSETRON 4 MG/2 ML VIAL IVPUSH PRN ×2 (19:44→20:27)
[2017-08-17] MEDS ORDERED: PROMETHAZINE HCL 25 MG/1 ML VIAL IVPB PRN (19:44)
[2017-08-17] MEDS ORDERED: LACTATED RINGERS SOLUTION 1,000 ML IV SCH ×2 (19:45→20:27)
--- NOTE | 2017-08-17 19:45 | OP ---
Operative Note - Note: Operative Date: 08/17/17 Pre-Operative Diagnosis: Perineal abscess Operation: Incision and drainage of perineal abscess. Washout Findings: Large abscess 5cm x 5cm Post-Operative Diagnosis: Same as Pre-op Surgeon: Barrett Hill Anesthesia: Spinal, Local Specimens Removed: Culture Estimated Blood Loss (mls): 0 Operative Report Dictated: Yes
--- NOTE | 2017-08-17 20:17 | OP ---
DATE OF OPERATION: 08/17/2017 SURGEON: Juan Hill MD PREOPERATIVE DIAGNOSIS: Perineal abscess. POSTOPERATIVE DIAGNOSIS: Large perineal abscess, large cavity, approximately 5 cm x 5 cm in size. PROCEDURE: 1. Incision and drainage of perineal abscess, 5 cm x 5 cm in size. 2. Washout. 3. Wound packing. SPECIMEN: Culture. ESTIMATED BLOOD LOSS: 0. ANESTHESIA: Spinal/local. REASON FOR PROCEDURE: This is a 52-year-old gentleman who presented to the emergency room with tenderness and redness and drainage from his perineal region. He was noted to have an abscess cavity which was partially draining, but needed to be opened further. The risks and benefits of incision and drainage of the abscess were explained. These included bleeding; infection; prolonged wound healing; injury to surrounding structures including nerve injury, vessel injury; injury to the surrounding structures including muscles, sphincter, as well as other structures; OH; DVT; PE, as some of the complications. He understood and signed informed consent. DESCRIPTION OF PROCEDURE: Patient obtained a spinal by Anesthesia and was placed supine on the operating room table. His legs were placed in stirrups. The area was prepped and draped with Betadine in usual sterile fashion. Timeout was performed. Lidocaine with epinephrine was injected, and an incision was made over the area of fluctuance and induration. Purulence was noted. Cultures were taken. Blunt dissection was performed to break up all loculations. The area was noted to be soft, without any further induration. The wound was irrigated and packed with a Kerlix soaked in Betadine. He tolerated the procedure well and was transferred to recovery room in stable condition. JUAN HILL M.D. [id number]
[2017-08-17] MEDS ORDERED: PROMETHAZINE HCL 25 MG/1 ML VIAL IVPUSH PRN (20:27)
[2017-08-17] MEDS ORDERED: ATORVASTATIN CA 10 MG TABLET (FP) PO SCH (22:00)
[2017-08-17] MEDS ORDERED: INSULIN (LEVEMIR) 100 UNITS/ML UNITS SQ SCH (22:00)
[2017-08-17] MEDS: DEXTROSE 5%-0.45% SALINE 1,000 ML IV SCH (22:40)
[2017-08-18] MEDS: INSULIN (LEVEMIR) 100 UNITS/ML UNITS SQ SCH ×3 (00:02→22:04)
[2017-08-18] MEDS: HEPARIN NA (PORCINE) 5,000 UNITS/ML 1ML VIAL SQ SCH ×3 (00:03→21:16)
[2017-08-18] MEDS: ATORVASTATIN CA 10 MG TABLET (FP) PO SCH ×2 (00:12→21:16)
[2017-08-18] MEDS: VANCOMYCIN 1,750 MG in DEXTROSE 5%-WATER - 500 ML IVPB SCH ×3 (00:12→21:16)
[2017-08-18] MEDS: INSULIN SLIDING SCALE (NOVOLOG) 1 VIAL SQ SCH ×5 (06:48→22:03)
[2017-08-18 07:07] LABS: BASO % 0.9 % (0-2.0); EOS % 2.3 % (0-4.5); HEMATOCRIT 36.6 % (35.4-49); HEMOGLOBIN 12.6 GM/dL (11.7-16.9); LYMPH % 22.6 % (8-40); MCH 29.4 pg (25.7-33.7); MCHC 34.5 g/dl (32.0-35.9); MEAN PLT VOLUME 7.8 fl (7.5-11.1); MONO % 11.5 % (3.8-10.2); NEUT % 62.7 % (42.8-82.8); PLATELET COUNT 208 K/MM3 (134-434); RBC 4.31 M/mm3 (4.00-5.60); RDW 12.7 % (11.9-15.9); WHITE BLOOD COUNT 8.6 K/mm3 (4.0-10.0)
[2017-08-18 07:12] LABS: CHLORIDE 106 mmol/L (98-107); POTASSIUM 3.9 mmol/L (3.5-5.1); SODIUM 138 mmol/L (136-145)
[2017-08-18 07:21] LABS: ANION GAP 8 (8-16); CALCIUM 7.5 mg/dL (8.5-10.1); CO2 24 mmol/L (21-32); CREATININE 0.6 mg/dL (0.7-1.3); GLUCOSE,RANDOM 112 mg/dL (74-106)
[2017-08-18 07:28] LABS: BLOOD UREA NITROGEN 17 mg/dL (7-18)
[2017-08-18] MEDS ORDERED: SODIUM CHLORIDE 100 ML IVPB ONE (09:21)
[2017-08-18] MEDS ORDERED: PT OWN MED DRAWER 7, Y5N ONE (09:21)
[2017-08-18] MEDS: CEFTRIAXONE 2 GM in SODIUM CHLORIDE 100 ML IVPB SCH (09:49)
[2017-08-18] MEDS: LISINOPRIL 10 MG TABLET (FP) PO SCH (09:52)
[2017-08-18] MEDS: ASPIRIN 81 MG CHEWABLE TABLETS PO SCH (09:52)
--- NOTE | 2017-08-18 10:40 | PN ---
Progress Note (short form) - Note Progress Note: POD 1 Pain controlled On diet Vital Signs Period Temp Pulse Resp BP Sys/Baez Pulse Ox Last 24 Hr 97.7 F-99 F 50-92 16-22 97-147/56-78 98-100 Wound packed Microbiology 08/16/17 23:05 Gram Stain - Final Scrotum Wound Culture - Preliminary Staphylococcus Latex Coag Pos 08/16/17 19:14 Urine Culture - Final Urine - Urine Clean Catch NO GROWTH OBTAINED 08/16/17 18:59 Blood Culture - Preliminary Blood - Peripheral Venous NO GROWTH OBTAINED AFTER 24 HOURS, INCUBATION TO CONTINUE FOR 4 DAYS. 08/16/17 18:59 Blood Culture - Preliminary Blood - Peripheral Venous NO GROWTH OBTAINED AFTER 24 HOURS, INCUBATION TO CONTINUE FOR 4 DAYS. Packing daily Antibiotics per ID
[2017-08-18] MEDS: oxyCODONE HCL 5 MG TABLET PO PRN ×2 (12:06→17:31)
--- NOTE | 2017-08-18 12:39 | PN ---
Progress Note, Physician Chief Complaint: day 1 postop - Current Medication List Current Medications: Active Medications Aspirin (Asa -) 81 mg PO DAILY [facility] Last Admin: 08/18/17 09:52 Dose: 81 mg Atorvastatin Calcium (Lipitor -) 10 mg PO HS [facility] Last Admin: 08/18/17 00:12 Dose: 10 mg Cyclobenzaprine HCl (Flexeril -) 10 mg PO Q8H PRN PRN Reason: spasm Heparin Sodium (Porcine) (Heparin -) 5,000 unit SQ BID [facility] Last Admin: 08/18/17 09:52 Dose: 5,000 unit Ceftriaxone Sodium 2 gm/ (Sodium Chloride) 100 mls @ 200 mls/hr IVPB DAILY [facility] Last Admin: 08/18/17 09:49 Dose: 200 mls/hr Dextrose/Sodium Chloride (D5-1/2ns -) 1,000 mls @ 75 mls/hr IV ASDIR [facility] Last Admin: 08/17/17 22:40 Dose: 0 mls Metronidazole (Flagyl 500mg Premixed Ivpb -) 500 mg in 100 mls @ 100 mls/hr IVPB Q8H-IV [facility] Last Admin: 08/18/17 09:51 Dose: 100 mls/hr Vancomycin HCl 1,750 mg/ (Dextrose) 500 mls @ 250 mls/hr IVPB BID@1000,2200 [facility] ; Protocol Last Admin: 08/18/17 09:51 Dose: 250 mls/hr Insulin Aspart (Novolog Vial Sliding Scale -) 1 vial SQ ACHS [facility]; Protocol Last Admin: 08/18/17 12:05 Dose: Not Given Insulin Detemir (Levemir Vial) 50 units SQ BID@0700,2200 [facility] Last Admin: 08/18/17 06:47 Dose: 50 unit Lisinopril (Prinivil) 10 mg PO DAILY [facility] Last Admin: 08/18/17 09:52 Dose: 10 mg Morphine Sulfate (Morphine Sulfate) 4 mg IVPUSH Q6H PRN PRN Reason: PAIN LEVEL 7 - 10 Oxycodone HCl (Roxicodone -) 10 mg PO Q4H PRN PRN Reason: PAIN LEVEL 4 - 6 Stop: 08/18/17 19:43 Last Admin: 08/18/17 12:06 Dose: 10 mg - Objective Vital Signs: Vital Signs Temperature 98.6 F 08/18/17 08:43 Pulse Rate 71 08/18/17 08:43 Respiratory Rate 18 08/18/17 08:43 Blood Pressure 130/73 08/18/17 08:43 O2 Sat by Pulse Oximetry (%) 100 08/17/17 23:06 Labs: CBC, BMP 08/18/17 06:20 08/18/17 06:20 INR, PTT INR 1.04 (0.82-1.09) 08/16/17 18:59 Assessment/Plan resting comfortably. No anesthetic issues
--- NOTE | 2017-08-18 13:41 | PN ---
Physical Exam: SUBJECTIVE: Patient seen and examined. POD 1 s/p I&D of scrotal abscess. Pt feels better today. Pt tolerating regular consistency diet. Pt denies fever, chills, chest pain, sob, abdominal pain. OBJECTIVE: Vital Signs Period Temp Pulse Resp BP Sys/Baez Pulse Ox Last 24 Hr 97.7 F-99 F 50-92 16-22 97-147/56-78 98-100 GENERAL: Awake, alert, and fully oriented, in no acute distress. LUNGS: Breath sounds equal, clear to auscultation bilaterally. No wheezes, and no crackles. No accessory muscle use. HEART: Regular rate and rhythm, normal S1 and S2 without murmur, rub or gallop. ABDOMEN: Soft, nontender, not distended, no guarding. LOWER EXTREMITIES: Warm, well-perfused. No calf tenderness. No peripheral edema. PSYCHIATRIC: Cooperative. Good eye contact. Appropriate mood and affect. SKIN: Right scrotum wound packed, CDI. Laboratory Results - last 24 hr 08/17/17 08/17/17 08/17/17 06:38 17:30 23:59 WBC RBC Hgb Hct MCV MCH MCHC RDW Plt Count MPV Neutrophils % Lymphocytes % Monocytes % Eosinophils % Basophils % Nucleated RBC % Sodium Potassium Chloride Carbon Dioxide Anion Gap BUN Creatinine POC Glucometer 105 239 Random Glucose Hemoglobin A1c % 8.9 H D Calcium 08/18/17 08/18/17 08/18/17 06:20 06:20 06:39 WBC 8.6 RBC 4.31 Hgb 12.6 Hct 36.6 MCV 85.0 MCH 29.4 MCHC 34.5 RDW 12.7 Plt Count 208 MPV 7.8 Neutrophils % 62.7 Lymphocytes % 22.6 Monocytes % 11.5 H Eosinophils % 2.3 Basophils % 0.9 Nucleated RBC % 0 Sodium 138 Potassium 3.9 Chloride 106 Carbon Dioxide 24 Anion Gap 8 BUN 17 Creatinine 0.6 L POC Glucometer 114 Random Glucose 112 H Hemoglobin A1c % Calcium 7.5 L 08/18/17 12:04 WBC RBC Hgb Hct MCV MCH MCHC RDW Plt Count MPV Neutrophils % Lymphocytes % Monocytes % Eosinophils % Basophils % Nucleated RBC % Sodium Potassium Chloride Carbon Dioxide Anion Gap BUN Creatinine POC Glucometer 159 Random Glucose Hemoglobin A1c % Calcium Active Medications Generic Name Dose Route Start Last Admin Trade Name Freq PRN Reason Stop Dose Admin Aspirin 81 mg 08/18/17 10:00 08/18/17 09:52 Asa - PO 81 mg DAILY CHANI Administration Atorvastatin Calcium 10 mg 08/17/17 22:00 08/18/17 00:12 Lipitor - PO 10 mg HS CHANI Administration Cyclobenzaprine HCl 10 mg 08/17/17 20:27 Flexeril - PO Q8H PRN spasm Heparin Sodium (Porcine) 5,000 unit 08/17/17 22:00 08/18/17 09:52 Heparin - SQ 5,000 unit BID CHANI Administration Ceftriaxone Sodium 2 gm/ 100 mls @ 200 mls/hr 08/18/17 10:00 08/18/17 09:49 Sodium Chloride IVPB 200 mls/hr DAILY HCANI Administration Dextrose/Sodium Chloride 1,000 mls @ 75 mls/hr 08/17/17 20:27 08/17/17 22:40 D5-1/2ns - IV 0 mls ASDIR CHANI Administration Metronidazole 500 mg in 100 mls @ 100 mls/hr 08/18/17 02:00 08/18/17 09:51 Flagyl 500mg Premixed Ivpb - IVPB 100 mls/hr Q8H-IV CHANI Administration Vancomycin HCl 1,750 mg/ 500 mls @ 250 mls/hr 08/17/17 22:00 08/18/17 09:51 Dextrose IVPB 250 mls/hr BID@1000,2200 CHANI Administration Protocol Insulin Aspart 1 vial 08/17/17 22:00 08/18/17 12:05 Novolog Vial Sliding Scale - SQ Not Given ACHS [facility] Protocol Insulin Detemir 50 units 08/17/17 22:00 08/18/17 06:47 Levemir Vial SQ 50 unit BID@0700,2200 CHANI Administration Lisinopril 10 mg 08/18/17 10:00 08/18/17 09:52 Prinivil PO 10 mg DAILY CHANI Administration Morphine Sulfate 4 mg 08/17/17 20:27 Morphine Sulfate IVPUSH Q6H PRN PAIN LEVEL 7 - 10 Oxycodone HCl 10 mg 08/17/17 20:27 08/18/17 12:06 Roxicodone - PO 08/18/17 19:43 10 mg Q4H PRN Administration PAIN LEVEL 4 - 6 ASSESSMENT/PLAN: 52M with PMH of DM, htn, hld, presents with scrotal abscess x 10 days. # scrotal abscess - s/p I&D by Dr. Hill on 08/17/17 - POD 1 - post-op care per Surgery - pt is afebrile - leukocytosis resolved - CRP elevated - blood culture (-) x 24 hrs - urine culture (-) - prelim wound culture (+) for Staph Latex coag + - continue IV Vancomycin, IV Ceftrixone, IV Flagyl # DM - care per primary team Plan discussed with Dr. Fonseca. Visit type - Emergency Visit Emergency Visit: Yes ED Registration Date: 08/16/17 Care time: The patient presented to the Emergency Department on the above date and was hospitalized for further evaluation of their emergent condition. - New Patient This patient is new to me today: No - Critical Care Critical Care patient: No
--- NOTE | 2017-08-18 13:50 | PN ---
Progress Note, Physician Chief Complaint: patient seen and exaimined s/o I/D of scrotal abscess wound packed by surgery on iv abx no fever leukocytosis resolved - Current Medication List Current Medications: Active Medications Aspirin (Asa -) 81 mg PO DAILY COUNTS INCLUDE 234 BEDS AT THE [facility] Last Admin: 08/18/17 09:52 Dose: 81 mg Atorvastatin Calcium (Lipitor -) 10 mg PO HS COUNTS INCLUDE 234 BEDS AT THE [facility] Last Admin: 08/18/17 00:12 Dose: 10 mg Cyclobenzaprine HCl (Flexeril -) 10 mg PO Q8H PRN PRN Reason: spasm Heparin Sodium (Porcine) (Heparin -) 5,000 unit SQ BID COUNTS INCLUDE 234 BEDS AT THE [facility] Last Admin: 08/18/17 09:52 Dose: 5,000 unit Ceftriaxone Sodium 2 gm/ (Sodium Chloride) 100 mls @ 200 mls/hr IVPB DAILY COUNTS INCLUDE 234 BEDS AT THE [facility] Last Admin: 08/18/17 09:49 Dose: 200 mls/hr Dextrose/Sodium Chloride (D5-1/2ns -) 1,000 mls @ 75 mls/hr IV ASDIR COUNTS INCLUDE 234 BEDS AT THE [facility] Last Admin: 08/17/17 22:40 Dose: 0 mls Metronidazole (Flagyl 500mg Premixed Ivpb -) 500 mg in 100 mls @ 100 mls/hr IVPB Q8H-IV COUNTS INCLUDE 234 BEDS AT THE [facility] Last Admin: 08/18/17 09:51 Dose: 100 mls/hr Vancomycin HCl 1,750 mg/ (Dextrose) 500 mls @ 250 mls/hr IVPB BID@1000,2200 COUNTS INCLUDE 234 BEDS AT THE [facility] ; Protocol Last Admin: 08/18/17 09:51 Dose: 250 mls/hr Insulin Aspart (Novolog Vial Sliding Scale -) 1 vial SQ ACHS COUNTS INCLUDE 234 BEDS AT THE [facility]; Protocol Last Admin: 08/18/17 12:05 Dose: Not Given Insulin Detemir (Levemir Vial) 50 units SQ BID@0700,2200 COUNTS INCLUDE 234 BEDS AT THE [facility] Last Admin: 08/18/17 06:47 Dose: 50 unit Lisinopril (Prinivil) 10 mg PO DAILY COUNTS INCLUDE 234 BEDS AT THE [facility] Last Admin: 08/18/17 09:52 Dose: 10 mg Morphine Sulfate (Morphine Sulfate) 4 mg IVPUSH Q6H PRN PRN Reason: PAIN LEVEL 7 - 10 Oxycodone HCl (Roxicodone -) 10 mg PO Q4H PRN PRN Reason: PAIN LEVEL 4 - 6 Stop: 08/18/17 19:43 Last Admin: 08/18/17 12:06 Dose: 10 mg - Objective Vital Signs: Vital Signs Temperature 98.6 F 08/18/17 08:43 Pulse Rate 71 08/18/17 08:43 Respiratory Rate 18 08/18/17 08:43 Blood Pressure 130/73 08/18/17 08:43 O2 Sat by Pulse Oximetry (%) 100 08/17/17 23:06 Constitutional: Yes: Calm Neck: Yes: Trachea Midline Cardiovascular: Yes: Regular Rate and Rhythm, S1, S2 Respiratory: Yes: CTA Bilaterally Gastrointestinal: Yes: Normal Bowel Sounds, Soft Genitourinary: Yes: Other (scrotal wound packed right side) Edema: No Labs: CBC, BMP 08/18/17 06:20 08/18/17 06:20 INR, PTT INR 1.04 (0.82-1.09) 08/16/17 18:59 Problem List - Problems (1) Diabetes Assessment/Plan: hgba1c 8.9 bgm noted on levemir Code(s): E11.9 - TYPE 2 DIABETES MELLITUS WITHOUT COMPLICATIONS Qualifiers: Diabetes mellitus type: type 2 (2) Abscess of scrotum Assessment/Plan: s/p I/D on iv abx surgery on board Code(s): N49.2 - INFLAMMATORY DISORDERS OF SCROTUM (3) HTN (hypertension) Assessment/Plan: on lisinpril Code(s): I10 - ESSENTIAL (PRIMARY) HYPERTENSION
[2017-08-18] MEDS: morphine SULFATE 4 MG/ML VIAL IVPUSH PRN ×2 (14:58→20:48)
[2017-08-18] MEDS ORDERED: INSULIN (NOVOLOG) ASPART 100 UNITS/ML 10ML VIAL ONE (20:37)
[2017-08-18] MEDS: DEXTROSE 5%-0.45% SALINE 1,000 ML IV SCH (20:53)
[2017-08-19] MEDS: INSULIN (LEVEMIR) 100 UNITS/ML UNITS SQ SCH ×2 (06:19→21:41)
[2017-08-19] MEDS: INSULIN SLIDING SCALE (NOVOLOG) 1 VIAL SQ SCH ×4 (06:19→21:40)
[2017-08-19] MEDS: morphine SULFATE 4 MG/ML VIAL IVPUSH PRN (08:45)
--- NOTE | 2017-08-19 08:55 | PN ---
Progress Note, Physician - Current Medication List Current Medications: Active Medications Aspirin (Asa -) 81 mg PO DAILY [facility] Last Admin: 08/18/17 09:52 Dose: 81 mg Atorvastatin Calcium (Lipitor -) 10 mg PO HS [facility] Last Admin: 08/18/17 21:16 Dose: 10 mg Cyclobenzaprine HCl (Flexeril -) 10 mg PO Q8H PRN PRN Reason: spasm Heparin Sodium (Porcine) (Heparin -) 5,000 unit SQ BID [facility] Last Admin: 08/18/17 21:16 Dose: 5,000 unit Ceftriaxone Sodium 2 gm/ (Sodium Chloride) 100 mls @ 200 mls/hr IVPB DAILY [facility] Last Admin: 08/18/17 09:49 Dose: 200 mls/hr Dextrose/Sodium Chloride (D5-1/2ns -) 1,000 mls @ 75 mls/hr IV ASDIR [facility] Last Admin: 08/18/17 20:53 Dose: Not Given Metronidazole (Flagyl 500mg Premixed Ivpb -) 500 mg in 100 mls @ 100 mls/hr IVPB Q8H-IV CHANI Last Admin: 08/19/17 01:35 Dose: 100 mls/hr Vancomycin HCl 1,750 mg/ (Dextrose) 500 mls @ 250 mls/hr IVPB BID@1000,2200 [facility] ; Protocol Last Admin: 08/18/17 21:16 Dose: 250 mls/hr Insulin Aspart (Novolog Vial Sliding Scale -) 1 vial SQ ACHS [facility]; Protocol Last Admin: 08/19/17 06:19 Dose: Not Given Insulin Detemir (Levemir Vial) 50 units SQ BID@0700,2200 [facility] Last Admin: 08/19/17 06:19 Dose: 50 unit Lisinopril (Prinivil) 10 mg PO DAILY [facility] Last Admin: 08/18/17 09:52 Dose: 10 mg Morphine Sulfate (Morphine Sulfate) 4 mg IVPUSH Q6H PRN PRN Reason: PAIN LEVEL 7 - 10 Last Admin: 08/19/17 08:45 Dose: 4 mg - Objective Vital Signs: Vital Signs Temperature 98 F 08/19/17 06:00 Pulse Rate 75 08/19/17 06:00 Respiratory Rate 20 08/19/17 06:00 Blood Pressure 134/68 08/19/17 06:00 O2 Sat by Pulse Oximetry (%) 98 08/18/17 21:00 Cardiovascular: Yes: Regular Rate and Rhythm Respiratory: Yes: Regular, CTA Bilaterally Gastrointestinal: Yes: Normal Bowel Sounds, Soft Edema: No Wound/Incision: Yes: Dressing Removed, Other (no drainage) Labs: CBC, BMP 08/18/17 06:20 08/18/17 06:20 INR, PTT INR 1.04 (0.82-1.09) 08/16/17 18:59 Assessment/Plan - Problems (1) Diabetes Assessment/Plan: hgba1c 8.9 bgm noted on levemir Code(s): E11.9 - TYPE 2 DIABETES MELLITUS WITHOUT COMPLICATIONS Qualifiers: Diabetes mellitus type: type 2 (2) Abscess of scrotum Assessment/Plan: s/p I/D on iv abx surgery on board Code(s): N49.2 - INFLAMMATORY DISORDERS OF SCROTUM (3) HTN (hypertension) Assessment/Plan: on lisinpril Code(s): I10 - ESSENTIAL (PRIMARY) HYPERTENSION
[2017-08-19] MEDS ORDERED: SODIUM CHLORIDE 100 ML IVPB ONE (09:41)
[2017-08-19] MEDS: CEFTRIAXONE 2 GM in SODIUM CHLORIDE 100 ML IVPB SCH (09:48)
[2017-08-19] MEDS: HEPARIN NA (PORCINE) 5,000 UNITS/ML 1ML VIAL SQ SCH ×2 (09:50→21:43)
[2017-08-19] MEDS: ASPIRIN 81 MG CHEWABLE TABLETS PO SCH (09:50)
[2017-08-19] MEDS: LISINOPRIL 10 MG TABLET (FP) PO SCH (09:50)
--- NOTE | 2017-08-19 09:50 | PN ---
Progress Note (short form) - Note Progress Note: Surgery POD #2 groin I&D Patient states he feels well overall. denies any new symptoms Vital Signs Temp 98 F 08/19/17 06:00 Pulse 75 08/19/17 06:00 Resp 20 08/19/17 06:00 BP 134/68 08/19/17 06:00 Pulse Ox 98 08/18/17 21:00 Intake & Output 08/18/17 08/18/17 08/19/17 11:59 23:59 11:59 Intake Total 950 Output Total 1700 1400 600 Balance -1700 -1400 350 Weight 268 lb Intake: IVPB 600 Oral 350 Output: Urine 1700 1400 600 Void 1700 1400 600 Other: Voiding Method Urinal Urinal Toilet Bowel Movement No Weight Measurement Method Built in [facility] CBC, BMP 08/18/17 06:20 08/18/17 06:20 PE: A&Ox3, NAD unlabored resp on RA groin, incision clean and dry with no diffuse d/c or puss, wound probed and extends past midline and posterior- no evidence of track, wound margins clean with no tracking erythema or sign of collection. area of firmness around immediate wound with no evidence of collection or fluctuance. Wound repacked with betadine soaked kurlex-patient tolerated the procedure well. Problem List - Problems (1) Abscess of scrotum Assessment/Plan: POD #2 scrotum I&D doing well 1) Continue daily wound packing 2) OOB as tolerated 3) ABX per ID 4) D/c planning Code(s): N49.2 - INFLAMMATORY DISORDERS OF SCROTUM
[2017-08-19] MEDS: VANCOMYCIN 1,750 MG in DEXTROSE 5%-WATER - 500 ML IVPB SCH ×2 (10:42→21:44)
[2017-08-19] MEDS ORDERED: BISACODYL 5 MG TABLET.DR (FP) PO ONE (18:00)
[2017-08-19] MEDS: POLYETHYLENE GLYCOL 3350 255 GM BTL PO SCH (18:30)
[2017-08-19] MEDS ORDERED: oxyCODONE HCL 5 MG TABLET PO PRN (18:57)
--- NOTE | 2017-08-19 20:22 | CONSULT ---
Consult Consult Specialty:: endocrine Referred by:: dr.annabi norman Reason for Consultation:: diabetes mellitus - History of Present Illness Chief Complaint: groin infection History of Present Illness: 52 y/o man with a PMH IDDM, HTN, HLD. Who presents to the ED with pain, drainage from scrotal abscess x 9 days. Patient reports it started as a pimple to the scrotal region and became bigger over time. He reports abscess and having bloody white drainage coming from it ,requiring admission for infected abscess and id surgery with iv antibiotic postop.his blood sugars have been elevated prior to admission but since have improved,he takes high doses of insulin to regulate his sugar,he thinks it his body resistant,he denies low blood sugars - History Source History Provided By: Patient - Past Medical History Cardio/Vascular: Yes: HTN, Hyperlipdemia Endocrine: Yes: Diabetes Mellitus - Past Surgical History Past Surgical History: Yes: Cholecystectomy - Alcohol/Substance Use Hx Alcohol Use: No - Smoking History Smoking history: Never smoked Have you smoked in the past 12 months: No Aproximately how many cigarettes per day: 0 Home Medications - Allergies Allergies/Adverse Reactions: Allergies Allergy/AdvReac Type Severity Reaction Status Date / Time No Known Allergies Allergy Verified 08/16/17 17:36 - Home Medications Home Medications: Ambulatory Orders Aspirin [ASA -] 81 mg PO DAILY 06/10/12 Insulin Glargine,Hum.rec.anlog [Lantus Solostar PEN -] 50 units SQ BID 06/10/12 Simvastatin [Zocor -] 20 mg PO HS 06/10/12 Lisinopril [Prinivil] 10 mg PO DAILY 06/22/13 metFORMIN HCL [Glucophage -] 1,000 mg PO BID@0700,1630 #60 tablet 04/03/15 Cyclobenzaprine HCl 10 mg PO Q8H PRN #14 tablet 06/15/17 Docusate Sodium [Colace -] 100 mg PO TID #90 capsule 08/17/17 Oxycodone HCl/Acetaminophen [Percocet 5-325 mg Tablet] 1 - 2 tab PO Q6H #28 tab MDD 4 08/17/17 Review of Systems - Review of Systems Constitutional: reports: Weakness Eyes: reports: Blurred Vision HENT: reports: No Symptoms Neck: reports: No Symptoms Cardiovascular: reports: Shortness of Breath Respiratory: reports: Exercise Intolerance, SOB on Exertion Gastrointestinal: reports: Constipation Genitourinary: reports: No Symptoms Breasts: reports: No Symptoms Reported Musculoskeletal: reports: Joint Pain Integumentary: reports: No Symptoms Neurological: reports: No Symptoms Endocrine: reports: Unexplained Weight Gain Physical Exam Vital Signs: Vital Signs Temperature 99.5 F 08/19/17 16:30 Pulse Rate 74 08/19/17 16:30 Respiratory Rate 20 08/19/17 16:30 Blood Pressure 133/76 08/19/17 16:30 O2 Sat by Pulse Oximetry (%) 98 08/19/17 10:00 Constitutional: Yes: Anxious Eyes: Yes: EOM Intact HENT: Yes: Normocephalic Neck: Yes: Trachea Midline Cardiovascular: Yes: Regular Rate and Rhythm Respiratory: Yes: CTA Bilaterally Gastrointestinal: Yes: Normal Bowel Sounds ...Rectal Exam: Yes: Deferred Renal/: Yes: WNL Breast(s): Yes: WNL Musculoskeletal: Yes: WNL Extremities: Yes: WNL Edema: No Integumentary: Yes: WNL Wound/Incision: Yes: Well Approximated, Draining Labs: CBC, BMP 08/18/17 06:20 08/18/17 06:20 Problem List - Problems (1) Diabetes mellitus with hyperosmolarity Code(s): E11.00 - TYPE 2 DIAB W HYPROSM W/O NONKET HYPRGLY-HYPROS COMA (NKHHC) (2) Abscess of scrotum Code(s): N49.2 - INFLAMMATORY DISORDERS OF SCROTUM (3) HTN (hypertension) Code(s): I10 - ESSENTIAL (PRIMARY) HYPERTENSION (4) Perineal abscess Code(s): L02.215 - CUTANEOUS ABSCESS OF PERINEUM (5) DVT prophylaxis Code(s): [id number] - (6) Diabetes Code(s): E11.9 - TYPE 2 DIABETES MELLITUS WITHOUT COMPLICATIONS Qualifiers: Diabetes mellitus type: type 2 (7) Elevated liver enzymes Code(s): R74.8 - ABNORMAL LEVELS OF OTHER SERUM ENZYMES Assessment/Plan Current Active Problems Abscess of scrotum (Acute) Diabetes mellitus with hyperosmolarity (Acute) HTN (hypertension) (Acute) Perineal abscess (Acute) Perineal abscess (Acute) Abnormal Lab Results 08/19/17 06:00 C-Reactive Protein 4.4 H Laboratory Results - last 24 hr 08/18/17 08/19/17 08/19/17 22:02 05:45 06:00 POC Glucometer 236 104 C-Reactive Protein 4.4 H 08/19/17 08/19/17 12:16 16:39 POC Glucometer 250 150 C-Reactive Protein Laboratory Tests 08/17/17 08/18/17 08/18/17 06:38 06:20 06:20 WBC 8.6 RBC 4.31 Hgb 12.6 Hct 36.6 MCV 85.0 MCH 29.4 MCHC 34.5 RDW 12.7 Plt Count 208 Sodium 138 Potassium 3.9 Chloride 106 Carbon Dioxide 24 Anion Gap 8 BUN 17 Creatinine 0.6 L POC Glucometer Hemoglobin A1c % 8.9 H D 08/18/17 08/18/17 08/18/17 06:39 12:04 17:28 WBC RBC Hgb Hct MCV MCH MCHC RDW Plt Count Sodium Potassium Chloride Carbon Dioxide Anion Gap BUN Creatinine POC Glucometer 114 159 132 Hemoglobin A1c % plan: bgm qid novolog scale levemir 50iu bid continue planned wound care nutrtion evaluation
[2017-08-19] MEDS: ATORVASTATIN CA 10 MG TABLET (FP) PO SCH (21:39)
[2017-08-20] MEDS: INSULIN SLIDING SCALE (NOVOLOG) 1 VIAL SQ SCH ×3 (06:03→18:02)
[2017-08-20] MEDS: INSULIN (LEVEMIR) 100 UNITS/ML UNITS SQ SCH (06:34)
--- NOTE | 2017-08-20 08:03 | PN ---
Progress Note, Physician - Current Medication List Current Medications: Active Medications Aspirin (Asa -) 81 mg PO DAILY [facility] Last Admin: 08/19/17 09:50 Dose: 81 mg Atorvastatin Calcium (Lipitor -) 10 mg PO HS [facility] Last Admin: 08/19/17 21:39 Dose: 10 mg Cyclobenzaprine HCl (Flexeril -) 10 mg PO Q8H PRN PRN Reason: spasm Heparin Sodium (Porcine) (Heparin -) 5,000 unit SQ BID [facility] Last Admin: 08/19/17 21:43 Dose: 5,000 unit Ceftriaxone Sodium 2 gm/ (Sodium Chloride) 100 mls @ 200 mls/hr IVPB DAILY [facility] Last Admin: 08/19/17 09:48 Dose: 200 mls/hr Dextrose/Sodium Chloride (D5-1/2ns -) 1,000 mls @ 75 mls/hr IV ASDIR [facility] Last Admin: 08/18/17 20:53 Dose: Not Given Metronidazole (Flagyl 500mg Premixed Ivpb -) 500 mg in 100 mls @ 100 mls/hr IVPB Q8H-IV [facility] Last Admin: 08/20/17 01:15 Dose: 100 mls/hr Vancomycin HCl 1,750 mg/ (Dextrose) 500 mls @ 250 mls/hr IVPB BID@1000,2200 [facility] ; Protocol Last Admin: 08/19/17 21:44 Dose: 250 mls/hr Insulin Aspart (Novolog Vial Sliding Scale -) 1 vial SQ ACHS [facility]; Protocol Last Admin: 08/20/17 06:03 Dose: Not Given Insulin Detemir (Levemir Vial) 50 units SQ BID@0700,2200 [facility] Last Admin: 08/20/17 06:34 Dose: 50 unit Lisinopril (Prinivil) 10 mg PO DAILY [facility] Last Admin: 08/19/17 09:50 Dose: 10 mg Oxycodone HCl (Roxicodone -) 5 mg PO Q6H PRN PRN Reason: PAIN LEVEL 6-10 Polyethylene Glycol (Miralax (For Bowel Prep) -) 17 gm PO DAILY [facility] Last Admin: 08/19/17 18:30 Dose: Not Given - Objective Vital Signs: Vital Signs Temperature 98.3 F 08/20/17 04:00 Pulse Rate 63 08/20/17 04:00 Respiratory Rate 18 08/20/17 04:00 Blood Pressure 128/69 08/20/17 04:00 O2 Sat by Pulse Oximetry (%) 98 08/19/17 21:00 Labs: CBC, BMP 08/18/17 06:20 08/18/17 06:20 INR, PTT INR 1.04 (0.82-1.09) 08/16/17 18:59
[2017-08-20] MEDS ORDERED: SODIUM CHLORIDE 100 ML IVPB ONE (09:20)
[2017-08-20] MEDS: CEFTRIAXONE 2 GM in SODIUM CHLORIDE 100 ML IVPB SCH (10:10)
[2017-08-20] MEDS: LISINOPRIL 10 MG TABLET (FP) PO SCH (10:13)
[2017-08-20] MEDS: HEPARIN NA (PORCINE) 5,000 UNITS/ML 1ML VIAL SQ SCH (10:13)
[2017-08-20] MEDS: ASPIRIN 81 MG CHEWABLE TABLETS PO SCH (10:13)
[2017-08-20] MEDS: POLYETHYLENE GLYCOL 3350 255 GM BTL PO SCH (10:14)
[2017-08-20] MEDS: VANCOMYCIN 1,750 MG in DEXTROSE 5%-WATER - 500 ML IVPB SCH (11:42)
--- NOTE | 2017-08-20 12:12 | PN ---
Progress Note, Physician History of Present Illness: No c/o scrotal pain No fever/ chills Wound c/s noted - Current Medication List Current Medications: Active Medications Amoxicillin/Clavulanate Potassium (Augmentin - 875mg Tablet) 1 tab PO BID@0800, 1730 [facility] Aspirin (Asa -) 81 mg PO DAILY [facility] Last Admin: 08/20/17 10:13 Dose: 81 mg Atorvastatin Calcium (Lipitor -) 10 mg PO HS [facility] Last Admin: 08/19/17 21:39 Dose: 10 mg Cyclobenzaprine HCl (Flexeril -) 10 mg PO Q8H PRN PRN Reason: spasm Heparin Sodium (Porcine) (Heparin -) 5,000 unit SQ BID [facility] Last Admin: 08/20/17 10:13 Dose: 5,000 unit Dextrose/Sodium Chloride (D5-1/2ns -) 1,000 mls @ 75 mls/hr IV ASDIR [facility] Last Admin: 08/18/17 20:53 Dose: Not Given Insulin Aspart (Novolog Vial Sliding Scale -) 1 vial SQ [facility]; Protocol Last Admin: 08/20/17 12:03 Dose: 8 units Insulin Detemir (Levemir Vial) 50 units SQ BID@0700,2200 [facility] Last Admin: 08/20/17 06:34 Dose: 50 unit Lisinopril (Prinivil) 10 mg PO DAILY [facility] Last Admin: 08/20/17 10:13 Dose: 10 mg Oxycodone HCl (Roxicodone -) 5 mg PO Q6H PRN PRN Reason: PAIN LEVEL 6-10 Polyethylene Glycol (Miralax (For Bowel Prep) -) 17 gm PO DAILY [facility] Last Admin: 08/20/17 10:14 Dose: Not Given - Objective Vital Signs: Vital Signs Temperature 98.3 F 08/20/17 04:00 Pulse Rate 63 08/20/17 04:00 Respiratory Rate 18 08/20/17 04:00 Blood Pressure 128/69 08/20/17 04:00 O2 Sat by Pulse Oximetry (%) 98 08/19/17 21:00 Constitutional: Yes: No Distress Cardiovascular: Yes: Regular Rate and Rhythm, S1, S2 Respiratory: Yes: CTA Bilaterally Gastrointestinal: Yes: Normal Bowel Sounds, Soft. No: Tenderness Genitourinary: Yes: Other (scrotal abscess packed) Labs: CBC, BMP 08/18/17 06:20 08/18/17 06:20 INR, PTT INR 1.04 (0.82-1.09) 08/16/17 18:59 Assessment/Plan S/P I&D scrotal abscess Polymicrobial Diabetes mellitus Substitute Augmentin 875mg po bid Local wound care
[2017-08-20 16:15] VITALS: BP 150/80; PULSE 88; TEMP 97.9
--- NOTE | 2017-08-20 17:12 | DS ---
Physical Examination Vital Signs: Vital Signs Temperature 97.9 F 08/20/17 14:25 Pulse Rate 88 08/20/17 14:25 Respiratory Rate 18 08/20/17 14:25 Blood Pressure 150/80 08/20/17 14:25 O2 Sat by Pulse Oximetry (%) 98 08/19/17 21:00 Labs: CBC, BMP 08/18/17 06:20 08/18/17 06:20 Discharge Summary Reason For Visit: ABSCESS OF SCROTUM Current Active Problems Abscess of scrotum (Acute) Diabetes mellitus with hyperosmolarity (Acute) HTN (hypertension) (Acute) Perineal abscess (Acute) Perineal abscess (Acute) Condition: Stable - Instructions - Home Medications Comprehensive Discharge Medication List: Ambulatory Orders Aspirin [ASA -] 81 mg PO DAILY 06/10/12 Insulin Glargine,Hum.rec.anlog [Lantus Solostar PEN -] 50 units SQ BID 06/10/12 Simvastatin [Zocor -] 20 mg PO HS 06/10/12 Lisinopril [Prinivil] 10 mg PO DAILY 06/22/13 metFORMIN HCL [Glucophage -] 1,000 mg PO BID@0700,1630 #60 tablet 04/03/15 Cyclobenzaprine HCl 10 mg PO Q8H PRN #14 tablet 06/15/17 Docusate Sodium [Colace -] 100 mg PO TID #90 capsule 08/17/17 Oxycodone HCl/Acetaminophen [Percocet 5-325 mg Tablet] 1 - 2 tab PO Q6H #28 tab MDD 4 08/17/17 Amox-Tr/K Cl [Augmentin 875-125mg Tablet -] 1 tab PO BID@0800,1730 #14 tablet Polyethylene Glycol 3350 [Miralax 255 gm Btl -] 17 gm PO DAILY btl 08/20/17
[2017-08-20] MEDS ORDERED: AMOX TR/POT CLAV 875MG/125MG TABLETS (FP) PO SCH (17:30)
--- NOTE | 2017-08-20 17:46 | PN ---
Progress Note, Physician Chief Complaint: wants to go home aware of need for follow up with surgeon History of Present Illness: dm ,piloneal abscess,diabetic nueropathy,htn,morbid obesity,sp wound dibridement local packing intact - Current Medication List Current Medications: Active Medications Amoxicillin/Clavulanate Potassium (Augmentin - 875mg Tablet) 1 tab PO BID@0800, 1730 [facility] Aspirin (Asa -) 81 mg PO DAILY [facility] Last Admin: 08/20/17 10:13 Dose: 81 mg Atorvastatin Calcium (Lipitor -) 10 mg PO HS [facility] Last Admin: 08/19/17 21:39 Dose: 10 mg Cyclobenzaprine HCl (Flexeril -) 10 mg PO Q8H PRN PRN Reason: spasm Heparin Sodium (Porcine) (Heparin -) 5,000 unit SQ BID [facility] Last Admin: 08/20/17 10:13 Dose: 5,000 unit Dextrose/Sodium Chloride (D5-1/2ns -) 1,000 mls @ 75 mls/hr IV [facility] Last Admin: 08/18/17 20:53 Dose: Not Given Insulin Aspart (Novolog Vial Sliding Scale -) 1 vial SQ [facility]; Protocol Last Admin: 08/20/17 12:03 Dose: 8 units Insulin Detemir (Levemir Vial) 50 units SQ BID@0700,2200 [facility] Last Admin: 08/20/17 06:34 Dose: 50 unit Lisinopril (Prinivil) 10 mg PO DAILY [facility] Last Admin: 08/20/17 10:13 Dose: 10 mg Oxycodone HCl (Roxicodone -) 5 mg PO Q6H PRN PRN Reason: PAIN LEVEL 6-10 Last Admin: 08/20/17 13:41 Dose: 5 mg Polyethylene Glycol (Miralax (For Bowel Prep) -) 17 gm PO DAILY [facility] Last Admin: 08/20/17 10:14 Dose: Not Given - Objective Vital Signs: Vital Signs Temperature 97.9 F 08/20/17 14:25 Pulse Rate 88 08/20/17 14:25 Respiratory Rate 18 08/20/17 14:25 Blood Pressure 150/80 08/20/17 14:25 O2 Sat by Pulse Oximetry (%) 98 08/19/17 21:00 Constitutional: Yes: Calm Eyes: Yes: EOM Intact HENT: Yes: Normocephalic Neck: Yes: Trachea Midline Cardiovascular: Yes: Regular Rate and Rhythm Respiratory: Yes: CTA Bilaterally Gastrointestinal: Yes: Normal Bowel Sounds ...Rectal Exam: Yes: Deferred Genitourinary: Yes: WNL Breast(s): Yes: WNL Musculoskeletal: Yes: WNL Extremities: Yes: WNL Wound/Incision: Yes: Well Approximated, Dressing Dry and Intact Labs: CBC, BMP 08/18/17 06:20 08/18/17 06:20 INR, PTT INR 1.04 (0.82-1.09) 08/16/17 18:59 Problem List - Problems (1) Diabetes mellitus with hyperosmolarity Code(s): E11.00 - TYPE 2 DIAB W HYPROSM W/O NONKET HYPRGLY-HYPROS COMA ([facility]) (2) Abscess of scrotum Code(s): N49.2 - INFLAMMATORY DISORDERS OF SCROTUM (3) HTN (hypertension) Code(s): I10 - ESSENTIAL (PRIMARY) HYPERTENSION (4) Perineal abscess Code(s): L02.215 - CUTANEOUS ABSCESS OF PERINEUM (5) DVT prophylaxis Code(s): MRO2084 - (6) Diabetes Code(s): E11.9 - TYPE 2 DIABETES MELLITUS WITHOUT COMPLICATIONS Qualifiers: Diabetes mellitus type: type 2 (7) Elevated liver enzymes Code(s): R74.8 - ABNORMAL LEVELS OF OTHER SERUM ENZYMES Assessment/Plan Current Active Problems Abscess of scrotum (Acute) Diabetes mellitus with hyperosmolarity (Acute) HTN (hypertension) (Acute) Perineal abscess (Acute) Perineal abscess (Acute) Current Medications Generic Name Dose Route Start Last Admin Trade Name Freq PRN Reason Stop Dose Admin Amoxicillin/Clavulanate Potassium 1 tab 08/20/17 17:30 Augmentin - 875mg Tablet PO BID@0800,1730 [facility] Aspirin 81 mg 08/18/17 10:00 08/20/17 10:13 Asa - PO 81 mg DAILY [facility] Administration Atorvastatin Calcium 10 mg 08/17/17 22:00 08/19/17 21:39 Lipitor - PO 10 mg HS [facility] Administration Cyclobenzaprine HCl 10 mg 08/17/17 20:27 Flexeril - PO Q8H PRN spasm Heparin Sodium (Porcine) 5,000 unit 08/17/17 22:00 08/20/17 10:13 Heparin - SQ 5,000 unit BID [facility] Administration Dextrose/Sodium Chloride 1,000 mls @ 75 mls/hr 08/17/17 20:27 08/18/17 20:53 D5-1/2ns - IV Not Given [facility] Insulin Aspart 1 vial 08/19/17 20:25 08/20/17 12:03 Novolog Vial Sliding Scale - SQ 8 units ACHS [facility] Administration Protocol Insulin Detemir 50 units 08/17/17 22:00 08/20/17 06:34 Levemir Vial SQ 50 unit BID@0700,2200 [facility] Administration Lisinopril 10 mg 08/18/17 10:00 08/20/17 10:13 Prinivil PO 10 mg DAILY [facility] Administration Oxycodone HCl 5 mg 08/19/17 18:57 08/20/17 13:41 Roxicodone - PO 5 mg Q6H PRN Administration PAIN LEVEL 6-10 Polyethylene Glycol 17 gm 08/19/17 18:00 08/20/17 10:14 Miralax (For Bowel Prep) - PO Not Given DAILY [facility] Laboratory Results - last 24 hr 08/19/17 08/20/17 08/20/17 21:37 05:49 11:38 POC Glucometer 189 138 213 plan: wound care follow up with surgery out patient continue levemir dose novolog insulin doses po antibiotics
== END 2017-08-20 19:13 | disposition home health service (06) | DRG 602 ==
LOC: JER 17:34 → JERBED 23:09 → J8W 08-17 14:00
PROVIDERS: ADMIT Internal Medicine; ATTEND Family Medicine
PROC: 0W9M0ZX Drainage of Male Perineum, Open Approach, Diagnostic (ICD-10-PCS; principal; 2017-08-17 14:30)
DX: L02.215 Cutaneous abscess of perineum (principal); E11.00 Type 2 diabetes mellitus with hyperosmolarity without nonketotic hyperglycemic-hyperosmolar coma (NKHHC); Z68.41 Body mass index [BMI] 40.0-44.9, adult; I10 Essential (primary) hypertension; E66.01 Morbid (severe) obesity due to excess calories; E78.5 Hyperlipidemia, unspecified; Z79.4 Long term (current) use of insulin; R74.8 Abnormal levels of other serum enzymes; E11.40 Type 2 diabetes mellitus with diabetic neuropathy, unspecified
CPT/HCPCS: 36415; 76870-TC; 80048; 80053; 80061; 81003; 82962; 83036; 83721; 85025; 85610; 86140; 87040; 87070; 87086; 87186; 87205; 94760; 99283-25; J1644

== ENCOUNTER 2017-09-08 20:49 | Emergency (ER) | payer BC, OTHER ==
[2017-09-08 21:14] VITALS: BP 143/81; PULSE 74; TEMP 98.4; BMI 41.5
--- NOTE | 2017-09-08 21:23 | PDOC ---
Rapid Medical Evaluation Chief Complaint: Abscess Boil Time Seen by Provider: 09/08/17 21:09 Medical Evaluation: Allergies Allergy/AdvReac Type Severity Reaction Status Date / Time No Known Allergies Allergy Verified 08/16/17 17:36 s/p I & D abscess of right thigh now with increased irritation to right thigh. PE: Patient alert ox3. A: rash r/o shingles. PE: left buttocks with vesciular rash. I& D abscess clean dry intact + dermaititis at [facility] perianal area. Patient to the ER for further evaluation./ Discharge Disposition - Referrals Referrals: Stevie Lobato MD [Primary Care Provider] - - Patient Instructions - Post Discharge Activity
--- NOTE | 2017-09-08 22:38 | PDOC ---
History of Present Illness - General Chief Complaint: Abscess Boil Stated Complaint: BODY ACHES, RASH Time Seen by Provider: 09/08/17 21:09 Past History - Past Medical History Allergies/Adverse Reactions: Allergies Allergy/AdvReac Type Severity Reaction Status Date / Time No Known Allergies Allergy Verified 09/08/17 21:14 Home Medications: Ambulatory Orders Aspirin [ASA -] 81 mg PO DAILY 06/10/12 Insulin Glargine,Hum.rec.anlog [Lantus Solostar PEN -] 50 units SQ BID 06/10/12 Simvastatin [Zocor -] 20 mg PO HS 06/10/12 Lisinopril [Prinivil] 10 mg PO DAILY 06/22/13 metFORMIN HCL [Glucophage -] 1,000 mg PO BID@0700,1630 #60 tablet 04/03/15 Cyclobenzaprine HCl 10 mg PO Q8H PRN #14 tablet 06/15/17 Docusate Sodium [Colace -] 100 mg PO TID #90 capsule 08/17/17 Oxycodone HCl/Acetaminophen [Percocet 5-325 mg Tablet] 1 - 2 tab PO Q6H #28 tab MDD 4 08/17/17 Amox-Tr/K Cl [Augmentin 875-125mg Tablet -] 1 tab PO BID@0800,1730 #14 tablet Polyethylene Glycol 3350 [Miralax 255 gm Btl -] 17 gm PO DAILY btl 08/20/17 Cephalexin [Keflex] 500 mg PO QID 5 Days #20 capsule 09/08/17 Clotrimazole 30 ml TP BID #1 bottle 09/08/17 Anemia: No Asthma: No Cancer: No Cardiac Disorders: No CVA: No COPD: No CHF: No DVT: No Dementia: No Diabetes: Yes GI Disorders: Yes Disorders: No HTN: Yes Hypercholesterolemia: Yes Kidney Stones: Yes Liver Disease: No Seizures: No Thyroid Disease: No - Surgical History Abdominal Surgery: Yes (cholecystectomy) Cardiac Surgery: No Cholecystectomy: Yes Lung Surgery: No Neurologic Surgery: No Orthopedic Surgery: Yes (Left knee repair) - Immunization History Immunization Up to Date: Yes - Suicide/Smoking/Psychosocial Hx Smoking Status: No Smoking History: Never smoked Have you smoked in the past 12 months: No Number of Cigarettes Smoked Daily: 0 Cigars Per Day: 0 Information on smoking cessation initiated: No Hx Alcohol Use: No Drug/Substance Use Hx: No Substance Use Type: None Hx Substance Use Treatment: No *Physical Exam - Vital Signs Last Vital Signs Temp Pulse Resp BP Pulse Ox 98.4 F 74 17 143/81 72 L 09/08/17 21:10 09/08/17 21:10 09/08/17 21:10 09/08/17 21:10 09/08/17 21:10 *DC/Admit/Observation/Transfer Diagnosis at time of Disposition: Tinea cruris Cellulitis Qualifiers: Site of cellulitis: other site Qualified Code(s): L03.818 - Cellulitis of other sites - Discharge Dispostion Disposition: HOME Condition at time of disposition: Improved Decision to Admit order: No - Prescriptions Prescriptions: Cephalexin [Keflex] 500 mg PO QID 5 Days #20 capsule Clotrimazole 30 ml TP BID #1 bottle - Referrals Referrals: Stevie Lobato MD [Primary Care Provider] - - Patient Instructions Printed Discharge Instructions: DI for Cellulitis -- Adult, Tinea Cruris: AKA Jock Itch Additional Instructions: You need to use your topical anti-fungal twice a day for two weeks and tae your antibiotics by mouth 4 times a day for 5 days. - Post Discharge Activity Forms/Work/School Notes: Back to Work
[2017-09-08] MEDS ORDERED: FLUCONAZOLE 150 MG TABLET PO ONE (22:43)
--- NOTE | 2017-09-08 22:46 | PDOC ---
Attending Attestation - Physicial Exam PE: 09/08/17 23:30 Constitutional: Awake, alert, oriented. No acute distress. Head: Normocephalic. Atraumatic Neck: Supple. Full ROM. No lymphadenopathy. Cardiovascular: Regular rate. Regular rhythm. S1, S2 regular. Distal pulses are 2+ and symmetric. Pulmonary/Chest: No evidence of respiratory distress. Clear to auscultation bilaterally No wheezing, rales or rhonchi. Abdominal: Soft and non-distended. There is no tenderness. No rebound, guarding or rigidity. No organomegaly. No palpable masses. Good bowel sounds. Back: No CVA tenderness. Genitourinary: (+) Old abscess with packing in the right scrotum. (+) Right inner groin into the buttock with satellite lesions and erythema consistent with fungal infection. Musculoskeletal: No edema. No cyanosis. No clubbing. Full range of motion in all extremities. No calf tenderness. Radial/pedal pulses are intact and 2+ bilaterally Skin: Skin is warm and dry. No petechiae. No purpura. Neurological: Alert and oriented to person, place, and time. Cranial nerves II -XII are grossly intact. Normal speech. Strength is grossly symmetric. No sensory deficits. Psychiatric: Good eye contact. Normal interaction, affect and behavior. <Pat Liz - Last Filed: 09/08/17 23:30> - Resident Resident Name: Cristobal Shen - ED Attending Attestation I have performed the following: I have examined & evaluated the patient, The case was reviewed & discussed with the resident, I agree w/resident's findings & plan, Exceptions are as noted - HPI HPI: 09/09/17 00:52 52yo male with Red rash to buttock and groind. Recently treated with abx for a scrotal abscess - has packing in place - scrotal abscess improved. No f/c. Rash appears fungal with satellite lesions. Small areas with vesicles - nontender to palpation, cross midline, suspect skin breakdown secondary to decreased mobility from scrotal abscess. No drainage. - Medical Decision Making 09/08/17 22:38 I, Dr. Julia Hicks, DO, attest that this document has been prepared under my direction and personally reviewed by me in its entirety. I further attest, that it accurately reflects all work, treatment, procedures and medical decision -making performed by me. 09/08/17 22:43 a/p: 52yo male with recent abx use for a scrotal abscess -packing in place, no drainage from abscess - no ttp over abscess, no fluctuance scrotum without erythema or ttp no testicular ttp redness to buttock and inner thigh on R, concerning for a fungal infection satellate lesions to buttock will treat with antifungals small area with vesicles, appears to be from skin breakdown will give fluconazole and topical antifungals discussed keeping the area clean, dry, intact <Julia Hicks - Last Filed: 09/09/17 00:54>
[2017-09-08] MEDS ORDERED: FLUCONAZOLE 100 MG TABLET (UD) ONE (23:05)
== END 2017-09-08 23:09 | disposition home or self-care (01) ==
LOC: JER 20:49
DX: B35.6 Tinea cruris (principal); L03.314 Cellulitis of groin; L03.317 Cellulitis of buttock; I10 Essential (primary) hypertension; E78.00 Pure hypercholesterolemia, unspecified; E11.9 Type 2 diabetes mellitus without complications; Z79.4 Long term (current) use of insulin
CPT/HCPCS: 99281-25

== ENCOUNTER 2017-12-13 06:43 | Day surgery (SDC) | payer BC, OTHER ==
[2017-12-12 08:34] VITALS: BMI 42.4
[2017-12-13 09:03] VITALS: TEMP 98
[2017-12-13 14:47] VITALS: BP 136/79; PULSE 85
--- NOTE | 2017-12-14 17:49 | PATH ---
Surgical Pathology Report Patient Name: DUTCH ZAVALETA [facility]. Rec. #: [id number] /Age/Gender: 1965 (Age: 52) / M Account: [id number] Location: [facility]-ENDOSCOPY Taken: 12/13/2017 Received: 12/13/2017 Reported: 12/14/2017 Physicians: Duarte Hernandez D.O. Specimen(s) Received BX RIGHT COLON POLYP Clinical History Colon cancer screening Final Diagnosis RIGHT COLON POLYP, BIOPSY: COLONIC MUCOSA WITH FOCAL MILD ACTIVE CHRONIC INFLAMMATION AND REACTIVE LYMPHOID AGGREGATE IN THE LAMINA PROPRIA. FOCAL CRYPT ARCHITECTURAL DISTORTION PRESENT. NEGATIVE FOR ACUTE CRYPTITIS OR CRYPT ABSCESS. Electronically Signed April Conley M.D. Gross Description Received in formalin, labeled "right colon polyp" is a castrejon, irregular portion of soft tissue measuring 0.3 cm. in greatest dimension. The specimen is submitted in toto in one cassette. SAUMYA/12/13/2017 tere/12/13/2017
== END 2017-12-13 11:15 | disposition home or self-care (01) ==
LOC: JASU-ENDO 06:43
PROVIDERS: ATTEND Internal Medicine Gastroenterology
PROC: 0DBF8ZX Excision of Right Large Intestine, Via Natural or Artificial Opening Endoscopic, Diagnostic (ICD-10-PCS; principal; 2017-12-13 08:00)
DX: Z12.11 Encounter for screening for malignant neoplasm of colon (principal); K63.5 Polyp of colon; K64.8 Other hemorrhoids; K64.4 Residual hemorrhoidal skin tags
CPT/HCPCS: 82962; 88305-TC

== ENCOUNTER 2018-03-28 08:40 | Emergency (ER) | payer OTHER ==
[2018-03-28 08:45] VITALS: BP 120/78; PULSE 80; TEMP 98.5; BMI 41.5
--- NOTE | 2018-03-28 08:51 | PDOC ---
History of Present Illness - General Chief Complaint: Injury Stated Complaint: INJURY Time Seen by Provider: 03/28/18 08:48 History Source: Patient Exam Limitations: No Limitations - History of Present Illness Initial Comments: 03/28/18 09:41 Patient is a 53-year-old male past medical history of right-sided partial paralysis, IDDM, hypertension, who presents to the ER for right hand pain status post mechanical trip and fall yesterday. Patient states he caught his right foot on an area rug. He states he landed on his right hand. He states that he has pain to his right pinky finger. Denies hitting his head or LOC. Denies numbness tingling and weakness to the affected extremity. Past History - Travel Traveled outside of the country in the last 30 days: No Close contact w/someone who was outside of country & ill: No - Past Medical History Allergies/Adverse Reactions: Allergies Allergy/AdvReac Type Severity Reaction Status Date / Time No Known Allergies Allergy Verified 09/08/17 21:14 Home Medications: Ambulatory Orders Aspirin [ASA -] 81 mg PO DAILY 06/10/12 Simvastatin [Zocor -] 20 mg PO HS 06/10/12 Lisinopril [Prinivil] 10 mg PO HS 06/22/13 Ergocalciferol (Vitamin D2) [Vitamin D2] 50,000 unit PO WEEKLY 12/12/17 Insulin Glargine,Hum.rec.anlog [Toujeo Solostar] 50 unit SQ DAILY 12/12/17 Insulin Lispro [Humalog Kwikpen U-200] 5 unit SQ AM 12/12/17 Insulin Lispro [Humalog Kwikpen U-200] 10 unit SQ HS 12/12/17 Sitagliptin Phos/Metformin HCl [Janumet Xr 50-1,000 mg Tablet] 1 each PO BID Anemia: No Asthma: No Cancer: No Cardiac Disorders: No CVA: No COPD: No CHF: No DVT: No Dementia: No Diabetes: Yes GI Disorders: No Disorders: Yes (BPH) HTN: Yes Hypercholesterolemia: Yes Kidney Stones: Yes Liver Disease: Yes (FATTY LIVER) Seizures: No Thyroid Disease: No - Surgical History Abdominal Surgery: Yes (cholecystectomy) Appendectomy: No Cardiac Surgery: No Cholecystectomy: Yes Lung Surgery: No Neurologic Surgery: No Orthopedic Surgery: Yes (LIGAMENT REPAIR LEFT KNEE) - Immunization History Immunization Up to Date: Yes - Suicide/Smoking/Psychosocial Hx Smoking Status: No Smoking History: Never smoked Have you smoked in the past 12 months: No Number of Cigarettes Smoked Daily: 0 Cigars Per Day: 0 Information on smoking cessation initiated: No Hx Alcohol Use: No Drug/Substance Use Hx: No Substance Use Type: None Hx Substance Use Treatment: No Review of Systems - Review of Systems Able to Perform ROS?: Yes Comments:: 03/28/18 08:50 CONSTITUTIONAL: Absent: fever, chills, diaphoresis, generalized weakness, malaise, loss of appetite HEENT: Absent: rhinorrhea, nasal congestion, throat pain, throat swelling, difficulty swallowing, mouth swelling, ear pain, eye pain, visual Changes MUSCULOSKELETAL: Present: R hand pain Absent: myalgia, arthralgia, joint swelling SKIN: Absent: rash, itching, pallor NEUROLOGIC: Absent: headache, focal weakness or paresthesias, dizziness, unsteady gait, seizure, mental status changes, bladder or bowel incontinence PSYCHIATRIC: Absent: anxiety, depression, suicidal or homicidal ideation, hallucinations. Is the patient limited Sinhala proficient: No *Physical Exam - Vital Signs Last Vital Signs Temp Pulse Resp BP Pulse Ox 98.5 F 80 18 120/78 100 03/28/18 08:43 03/28/18 08:43 03/28/18 08:43 03/28/18 08:43 03/28/18 08:43 - Physical Exam Comments: 03/28/18 08:50 GENERAL: The patient is awake, alert, and fully oriented, in no acute distress. HEAD: Normal with no signs of trauma. EYES: Pupils equal, round and reactive to light, extraocular movements intact, sclera anicteric, conjunctiva clear. EXTREMITIES: TTP of R 5th metacarpal. Normal range of motion and strength intact b/l for patient, no edema. NEUROLOGICAL: Normal speech, normal gait. PSYCH: Normal mood, normal affect. SKIN: Warm, Dry, normal turgor, no rashes or lesions noted. Moderate Sedation - Procedure Monitoring Vital Signs: Procedure Monitoring Vital Signs Temperature 98.5 F 03/28/18 08:43 Pulse Rate 80 03/28/18 08:43 Respiratory Rate 18 03/28/18 08:43 Blood Pressure 120/78 03/28/18 08:43 O2 Sat by Pulse Oximetry (%) 100 03/28/18 08:43 Medical Decision Making - Medical Decision Making 03/28/18 09:43 Patient is a 53-year-old male past medical history diabetes, who presents to the ER for one day of right hand pain and swelling. On exam minimal swelling appreciated. Tender to palpation of the right fifth metacarpal. X-rays negative for fractures or dislocation at this time. Possible finger sprain versus bruising. Discharge home with symptomatic treatment and orthopedic follow-up. I discussed the physical exam findings, ancillary test results and final diagnoses with the patient. I answered all of the patient's questions. The patient was satisfied with the care received and felt comfortable with the discharge plan and treatment plan. The Patient agrees to follow up with the primary care physician/specialist within 24-72 hours. Return precautions were given. *DC/Admit/Observation/Transfer Diagnosis at time of Disposition: Finger pain, right Fall Qualifiers: Encounter type: initial encounter Qualified Code(s): W19.XXXA - Unspecified fall, initial encounter - Discharge Dispostion Disposition: HOME Condition at time of disposition: Stable Decision to Admit order: No - Referrals Referrals: Stevie Lobato MD [Primary Care Provider] - Jose Alfonso MD [Staff Physician] - - Patient Instructions Printed Discharge Instructions: DI for Finger Sprain Additional Instructions: You fell and hurt your right fifth finger. Your x-rays were negative today for fracture or dislocation. He may take Tylenol 650 mg every 4 hours as needed for pain not to exceed 3000 g a day. He may apply ice to the areas help with her pain. If you still have pain within the next 3-5 days, please follow-up with a hand specialist. A referral has been provided for you. Return to the emergency department if you have weakness in the hand, numbness and tingling, redness or if you have any changes in your symptoms. - Post Discharge Activity Forms/Work/School Notes: Back to Work
[2018-03-28] MEDS ORDERED: ACETAMINOPHEN 325 MG TABLET (FP) PO ONE (09:34)
[2018-03-28] MEDS ORDERED: ACETAMINOPHEN 325 MG TABLET (FP) ONE (09:36)
== END 2018-03-28 09:39 | disposition home or self-care (01) ==
LOC: JERFT 08:40
DX: S69.81XA Other specified injuries of right wrist, hand and finger(s), initial encounter (principal); W18.09XA Striking against other object with subsequent fall, initial encounter; Y93.89 Activity, other specified; Y92.038 Other place in apartment as the place of occurrence of the external cause; Y99.8 Other external cause status; I10 Essential (primary) hypertension; E11.9 Type 2 diabetes mellitus without complications; Z79.4 Long term (current) use of insulin; N40.0 Benign prostatic hyperplasia without lower urinary tract symptoms
CPT/HCPCS: 73110-TC-RT-FY; 73130-TC-RT-FY; 99281-25

== ENCOUNTER 2018-04-19 06:05 | Day surgery (SDC) | payer OTHER ==
[2018-04-18 16:18] VITALS: BMI 43.0
[2018-04-19 06:53] LABS: ACTIVATED PTT 18.7 SECONDS (25.2-36.5); INR 0.92 (0.83-1.09); PROTHROMBIN TIME (PATIENT) 10.9 SEC (9.7-13.0)
[2018-04-19] MEDS ORDERED: PROPOFOL 20 ML ONE ×3 (07:06→09:07)
[2018-04-19] MEDS ORDERED: DEXAMETHASONE SOD PHOSPHATE 4 MG/1 ML VIAL ONE (07:07)
[2018-04-19] MEDS ORDERED: MIDAZOLAM HCL 2 MG/2 ML SINGLE DOSE VIAL ONE ×3 (07:07→07:34)
[2018-04-19] MEDS ORDERED: SUCCINYLCHOLINE CHLORIDE 200 MG/10 ML VIAL ONE (07:07)
[2018-04-19] MEDS ORDERED: DEXAMETHASONE SOD PHOSPHATE/PF 10 MG/ML SDV ONE (07:33)
[2018-04-19] MEDS ORDERED: ROPIVACAINE HCL 0.5% 30ML VIAL ONE (07:33)
--- NOTE | 2018-04-19 08:01 | HP ---
Satellite [facility] - Chief Complaint Chief Complaint: LEFT SHOULDER PAIN History Source: Patient - Past Medical History Allergies/Adverse Reactions: Allergies Allergy/AdvReac Type Severity Reaction Status Date / Time No Known Allergies Allergy Verified 04/19/18 06:43 Cardiovascular: Yes: HTN, Hyperlipdemia Endocrine: Yes: Diabetes Mellitus - Current Medications Current Medications: Home Medications Medication Instructions Recorded Aspirin [ASA -] 81 mg PO DAILY 06/10/12 Simvastatin [Zocor -] 20 mg PO HS 06/10/12 Lisinopril [Prinivil] 10 mg PO HS 06/22/13 Ergocalciferol (Vitamin D2) 50,000 unit PO WEEKLY 12/12/17 [Vitamin D2] Insulin Glargine,Hum.rec.anlog 70 unit SQ DAILY 12/12/17 [Toujeo Solostar] Insulin Lispro [Humalog Kwikpen 5 unit SQ AM 12/12/17 U-200] Insulin Lispro [Humalog Kwikpen 10 unit SQ HS 12/12/17 U-200] Sitagliptin Phos/Metformin HCl 1 each PO BID 04/18/18 [Janumet 50-1,000 mg Tablet] Metoprolol Tartrate 25 mg PO DAILY 04/19/18 Satellite Physical Exam - Physical Examination Vital Signs: Vital Signs Period Temp Pulse Resp BP Sys/Baez Pulse Ox Last 24 Hr 97.6 F-97.6 F 66-66 20-20 147-147/94-94 98 Extremities: Other (+ WEAKNESS WITH TDA, + IMPINGEMENT SIGN) Satellite Impression/Plan - Impression/Plan Impression: LEFT RC TEAR Operative Procedure: ARTHROSCOPY LEFT SHOULDER WITH RC REPAIR AND DECOMPRESSION Date to be Performed: 04/19/18
[2018-04-19] MEDS ORDERED: ceFAZolin SODIUM 1 GM VIAL ONE (08:18)
[2018-04-19] MEDS ORDERED: ceFAZolin SODIUM 1 GM VIAL IVPB ONE (08:23)
[2018-04-19] MEDS ORDERED: METOPROLOL TARTRATE 5 MG/5 ML VIAL ONE (08:31)
--- NOTE | 2018-04-19 09:32 | OP ---
Operative Note - Note: Operative Date: 04/19/18 ([facility]) Pre-Operative Diagnosis: left shoulder rct Operation: left shoulder arthroscopy with RCR, SAD Implants: arthrex speedrbridge Post-Operative Diagnosis: Same as Pre-op Surgeon: Rodney Castillo Dude Ranch Manager: Kennedy Salcido Anesthesiologist/EARTHMOVING LABOURER: Nataliya Daniel Anesthesia: Local, MAC Specimens Removed: shavings Estimated Blood Loss (mls): 5 Operative Report Dictated: Yes
--- NOTE | 2018-04-19 11:30 | SPEC ---
DATE OF OPERATION: 04/19/2018 PREOPERATIVE DIAGNOSIS: Left rotator cuff tear. POSTOPERATIVE DIAGNOSIS: Left rotator cuff tear. PROCEDURE: Left arthroscopic rotator cuff repair with SpeedBridge. SURGICAL ATTENDING: Rodney Castillo MD COOK ROOM SUPERVISOR: MILAD Moreno ANESTHESIA: Regional and general. CLOSURE: A SpeedBridge for rotator cuff, 3-0 nylon for skin. ESTIMATED BLOOD LOSS: Negligible. COMPLICATIONS: None. CONDITION: To the recovery room in stable condition. DESCRIPTION OF PROCEDURE: The patient was taken to the operating room on April 19, 2018. General and regional anesthesia was administered by the anesthesiologist. IV Kefzol was administered prophylactically prior to the case. The patient was placed in the beach-chair position with all prominences well padded. The left shoulder area was prepped and draped in the usual sterile fashion. First, a diagnostic arthroscopy of the glenohumeral joint was made. Posterior portal was made 2 fingerbreadths below the acromion with a 15 blade followed by a blunt trocar. Circumferential exam of the glenohumeral joint revealed the following: Intact labrum circumferentially, intact glenoid and humeral head articular cartilage, intact biceps and biceps anchor, intact subscapularis through its insertion. Looking superiorly, there was a large rotator cuff tear. The fluid was drained from the shoulder, and the trocar was removed. The posterior trocar was redirected in the subacromial space. An accessory lateral and anterior portal were made with a 15 blade followed by a blunt trocar. The lateral portal was used as the working portal. Through this portal, an ArthroCare device was applied. This was used to debride the soft tissue in the subacromial aspect. The coracoacromial ligament was identified and detached off the anterior acromion and was visualized to drop inferiorly and was further debrided. The bone on the undersurface of the acromion was burred to the appropriate level giving appropriate height for the rotator cuff beneath. Looking inferiorly, there was a large rotator cuff tear, soft tissue encasing the rotator cuff, and the deltoid recess was debrided using ArthroCare device and the shaver. The bed on the greater tuberosity was burred to give a good bed for the double-row SpeedBridge repair. A grasper was used to ensure that the rotator cuff was able to be reduced sufficiently to the greater tuberosity. The rotator cuff was freed on the bursal and the articular surface to allow more excursion of the tendon. Two anchors preloaded with FiberTape suture were placed on the articular margin, 1 more anteriorly, 1 more posteriorly. They were shuttled through the anterior portal with a grasper. Each limb was individually passed through the rotator cuff, 2 anteriorly and 2 posteriorly. One anterior limb and 1 posterior limb was delivered through the lateral portal. They were placed through the eyelet hole of the more lateral anchor, which was then malleted into place much more laterally, reducing the rotator cuff to the greater tuberosity. The swivel was then screwed into place. The sutures were then cut flush with the bone. Next, 1 anterior and 1 posterior limb that was remaining were shuttled from the anterior to the lateral portal. The sutures were placed through the eyelet hole of the anterior anchor, which was malleted on the anterior aspect of the greater tuberosity. After tensioning it, it was deployed the entire way and then screwed home giving an excellent reduction to the anterior portion of the rotator cuff. After the sutures were cut, the rotator cuff was probed and found to have good stability with excellent matting down of the rotator cuff to the greater tuberosity. The shoulder was taken through the range of motion and found to have good clearance on the undersurface of the acromion with good, solid repair. The shoulder was drained of the fluid. The portals were closed with 3-0 nylon suture. A sterile pressure dressing followed by a shoulder immobilizer was applied. The patient was awoken from anesthesia and transferred to recovery room in stable condition. No complications. Estimated blood loss negligible. Nayely [id number]
[2018-04-19] MEDS ORDERED: ONDANSETRON 4 MG/2 ML VIAL IVPUSH PRN (11:46)
[2018-04-19] MEDS ORDERED: oxyCODONE HCL 5 MG TABLET PO PRN (11:46)
[2018-04-19] MEDS ORDERED: PROMETHAZINE HCL 25 MG/1 ML VIAL IVPUSH PRN (11:46)
[2018-04-19 13:29] VITALS: BP 131/57; PULSE 65; TEMP 97.5
== END 2018-04-19 12:00 | disposition home health service (06) ==
LOC: JASU-SURG 06:05
PROVIDERS: ATTEND Orthopaedic Surgery
PROC: 0LQ24ZZ Repair Left Shoulder Tendon, Percutaneous Endoscopic Approach (ICD-10-PCS; principal; 2018-04-19 08:00)
DX: M75.102 Unspecified rotator cuff tear or rupture of left shoulder, not specified as traumatic (principal)
CPT/HCPCS: 36415; 82962; 85610; 85730; 94760

== ENCOUNTER 2018-07-20 09:13 | Inpatient (IN) | payer OTHER ==
--- NOTE | 2018-07-20 09:20 | PDOC ---
History of Present Illness - General Stated Complaint: CHEST PAIN Time Seen by Provider: 07/20/18 09:15 History Source: Patient Exam Limitations: No Limitations - History of Present Illness Initial Comments: 53 yo M w a pmh of IDDM, HTN, and HLD who presents to the ER BIBEMS for Shortness of breath, difficulty breathing and mild chest pain. The patient took a new insulin formulation this morning - Soliqua - at 8:15 Am after which he started having an allergic reaction, became short of breath, developed an erythematous rash over his entire torso and his lips, tongue, throat and eyes started swelling up. The patient immediately called EMS and was brought to the ER to be evaluated. He received an aspirin and duonebs on route. In the ER he was immediately treated as if he were having angioedema and anaphylaxis and was given two large bore IV's where he got Epi, solumedrol, benadryl, pepcid, duonebs, and IV hydration. Within 5 minutes of the Epi the patient started feeling better and his throat began to clear up. His original Mallampati score was a 4 and now is a 3. The patient states nothing like this has ever happened to him before and to the best of his knowledge he has no known allergies. He denies recent fevers, chills, infections, prior hx of angioedema, anaphylaxis or heart attack. 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 Allergies: NKA, NKDA Past History - Past Medical History Allergies/Adverse Reactions: Allergies Allergy/AdvReac Type Severity Reaction Status Date / Time insulin glargine Allergy Difficulty Verified 07/20/18 09:59 [From Soliqua 100/33] Breathing lixisenatide Allergy Difficulty Verified 07/20/18 09:59 [From Soliqua 100/33] Breathing Home Medications: Ambulatory Orders Aspirin [ASA -] 81 mg PO DAILY 06/10/12 Simvastatin [Zocor -] 20 mg PO HS 06/10/12 Lisinopril [Prinivil] 10 mg PO HS 06/22/13 Ergocalciferol (Vitamin D2) [Vitamin D2] 50,000 unit PO WEEKLY 12/12/17 Insulin Lispro [Humalog Kwikpen U-200] 5 unit SQ AM 12/12/17 Insulin Lispro [Humalog Kwikpen U-200] 10 unit SQ HS 12/12/17 Sitagliptin Phos/Metformin HCl [Janumet 50-1,000 mg Tablet] 1 each PO BID Anemia: No Asthma: No Cancer: No Cardiac Disorders: No CVA: No COPD: No CHF: No DVT: No Dementia: No Diabetes: Yes GI Disorders: No Disorders: Yes (BPH) HTN: Yes Hypercholesterolemia: Yes Kidney Stones: Yes Liver Disease: Yes (FATTY LIVER) Seizures: No Thyroid Disease: No - Surgical History Abdominal Surgery: Yes (cholecystectomy) Appendectomy: No Cardiac Surgery: No Cholecystectomy: Yes Lung Surgery: No Neurologic Surgery: No Orthopedic Surgery: Yes (LIGAMENT REPAIR LEFT KNEE) - Immunization History Immunization Up to Date: Yes - Suicide/Smoking/Psychosocial Hx Smoking Status: No Smoking History: Never smoked Have you smoked in the past 12 months: No Number of Cigarettes Smoked Daily: 0 Cigars Per Day: 0 Hx Alcohol Use: No Drug/Substance Use Hx: No Substance Use Type: None Hx Substance Use Treatment: No Review of Systems - Review of Systems Able to Perform ROS?: Yes Constitutional: Yes: Chills, Diaphoresis HEENTM: Yes: Eye Pain, Blurred Vision, Throat Pain, Throat Swelling, Difficulty Swallowing, Mouth Swelling, Other (Lip and tongue swelling) Respiratory: Yes: Shortness of Breath, Wheezing Cardiac (ROS): Yes: Chest Pain, Lightheadedness, Palpitations ABD/GI: Yes: Difficulty Swallowing. No: Abdominal Distended : No: Burning, Dysuria, Discharge Musculoskeletal: No: Back Pain, Joint Swelling, Muscle Pain Integumentary: Yes: Change in Color, Erythema, Flushing, Pruritus, Rash Neurological: No: Headache, Numbness Psychiatric: No: Emotional Problems, Mood Swings Endocrine: Yes: Flushing. No: Excessive Sweating, Intolerance to Cold, Intolerance to Heat Hematologic/Lymphatic: No: Blood Clots, Easy Bleeding *Physical Exam - Physical Exam General Appearance: Yes: Appropriately Dressed, Severe Distress, Obese HEENT: positive: HOLLY, Muffled/Hoarse voice, Other (Tongue, Lip and eyelid swelling). negative: Normal ENT Inspection, Normal Voice (Throat swelling), Pharynx Normal Neck: positive: Supple Respiratory/Chest: positive: Wheezing Cardiovascular: positive: Regular Rhythm, S1, S2, Tachycardia. negative: JVD Vascular Pulses: Dorsalis-Pedis (R): 2+, Doralis-Pedis (L): 2+ Gastrointestinal/Abdominal: positive: Normal Bowel Sounds. negative: Tender, Distended, Guarding, Rebound Male Genitalia: positive: normal genitalia Rectal Exam: positive: deferred Lymphatic: negative: Adenopathy Musculoskeletal: positive: Normal Inspection, Decreased Range of Motion (left shoulder). negative: CVA Tenderness Extremity: positive: Normal Capillary Refill, Normal Inspection, Delayed Capillary Refill, Swelling, Inflammation Integumentary: positive: Dry, Warm, Diaphoresis, Hives, Rash, Swelling. negative: Normal Color Neurologic: positive: bss solution architect II-XII NML intact, Fully Oriented, Alert, Normal Response, Motor Strength 5/5, Respond to painful stimul ED Treatment Course - LABORATORY CBC & Chemistry Diagram: 07/20/18 09:38 07/20/18 09:52 Medical Decision Making - Medical Decision Making 53 yo M w a pmh of IDDM, HTN, and HLD who presents to the ER BIBEMS for Shortness of breath, difficulty breathing and mild chest pain. The patient took a new insulin formulation this morning - Soliqua - at 8:15 Am after which he started having an allergic reaction, became short of breath, developed an erythematous rash over his entire torso and his lips, tongue, throat and eyes started swelling up. The patient immediately called EMS and was brought to the ER to be evaluated. He received an aspirin and duonebs on route. In the ER he was immediately treated as if he were having angioedema and anaphylaxis and was given two large bore IV's where he got Epi, solumedrol, benadryl, pepcid, duonebs, and IV hydration. Within 5 minutes of the Epi the patient started feeling better and his throat began to clear up. His original Mallampati score was a 4 and now is a 3. The patient states nothing like this has ever happened to him before and to the best of his knowledge he has no known allergies. He denies recent fevers, chills, infections, prior hx of angioedema, anaphylaxis or heart attack. VS: Tachycardic, tachypneic DDx IBNLT: Angioedema vs anaphylaxis - likely from the medication Soliqua, less likely from chronic lisinopril but also high on DD Plan: Labs, Urine, epi, benadryl, duonebs, pepcid, steroids, IV hydration, ENT consult, re-assess. ENT consulted - Dr. Wright Patient feels much better after Epi. He says his throat is less swollen and he is starting to feel better. After receiving Epi the patient's rash went away and he said his throat started to clear up. 30 minutes later he had another episode of throat swelling, and his rash returned. Another round of Epi was given and patient's symptoms subsided. This is likely happening bc the soliqua which the patient took is an ER drug which will take 24 hours to clear from the system. Will admit patient to the Unit bc his airway is a concerns. *DC/Admit/Observation/Transfer Diagnosis at time of Disposition: Angioedema, Anaphylaxis, Rash - Discharge Dispostion Condition at time of disposition: Guarded Decision to Admit order: Yes - Referrals - Patient Instructions - Post Discharge Activity
[2018-07-20] MEDS ORDERED: ALBUTEROL SO4 2.5/IPRATROPIUM 0.5 INH SOL 3 ML VIAL.NEB. NEB ONE ×2 (09:27→09:33)
[2018-07-20] MEDS ORDERED: methylPREDNISolone NA SUCC 125 MG/2 ML VIAL IVPB ONE (09:27)
[2018-07-20] MEDS ORDERED: EPINEPHrine 1:1,000 0.3 MG/0.3 ML SYR IM ONE ×2 (09:27→10:28)
[2018-07-20] MEDS ORDERED: EPINEPHrine/PF 1 MG/1 ML (1:1,000) AMPULE ONE ×2 (09:27→10:30)
[2018-07-20] MEDS ORDERED: methylPREDNISolone NA SUCC 125 MG/2 ML VIAL ONE (09:33)
[2018-07-20] MEDS ORDERED: FAMOTIDINE 20 MG/50 ML IVPB 20 MG/50 ML MG IVPB ONE ×2 (09:38→09:52)
[2018-07-20 10:10] LABS: VENOUS PC02 44.1 mmHg (41-51); VENOUS PH 7.38 (7.31-7.41); VENOUS PO2 59.6 mmHg (30-40)
--- NOTE | 2018-07-20 10:16 | PDOC ---
Documentation entered by Jelena Murphy SCRIBE, acting as scribe for Radha Magana MD. Radha Magana MD: This documentation has been prepared by the Katherine iraheta Amanda, SCRIBE, under my direction and personally reviewed by me in its entirety. I confirm that the documentation accurately reflects all work, treatment, procedures, and medical decision making performed by me. Attending Attestation - Resident Resident Name: Tyron Orta - ED Attending Attestation I have performed the following: I have examined & evaluated the patient, The case was reviewed & discussed with the resident, I agree w/resident's findings & plan, Exceptions are as noted - HPI HPI: 07/20/18 10:03 Mr chadwick is a 53 yo M h/o HTN, DM, HLD who presents to the ER via EMS s/p allergic reaction Pt took Soliqua for the first time this morning at approximately 8:30am He immediately noted that his skin was pruritic, oropharyngeal swelling He called EMS, was given Aspirin en route to the ER Upon arrival to the ER, he was noted to be short of breath, lip swelling, eye swelling and he reported throat swelling No prior allergic reactions in the past to foods, medications, animals, pollen PMH: HTN, HLD, DM PSH: Cholecystectomy, left shoulder arthroscopy Meds: Asa, Simvastatin, Lisinopril, insulin Toujeo, Humalog, Janumet, Metoprolol , Soliqua ALL: NKDA Social: denies alcohol, drug, cigarette use 07/20/18 10:08 07/20/18 10:08 - Physicial Exam PE: 07/20/18 09:59 GENERAL: The patient appears to be in acute distress. ENT: Ears normal, nares patent, unable to visualize uvula, Mallampati 4, oropharynx clear without exudates. Moist mucous membranes. NECK: Normal range of motion, supple, no nuchal rigidity LUNGS: Breath sounds equal, clear to auscultation bilaterally. No wheezing appreciated. HEART:Regular rate and rhythm, normal S1 and S2 without murmur, rub or gallop. ABDOMEN: Soft, nontender, normoactive bowel sounds. EXTREMITIES: Normal range of motion, no edema. NEUROLOGICAL: Cranial nerves II through XII grossly intact. Normal speech. No focal neurological deficits. SKIN: Diffuse erythema, urticaria, lips edematous, eyes edematous - Critical Care Time Total Critical Care Time: 60 Critical Care Statement: The care of this patient involved high complexity decision making to prevent further life threatening deterioration of the patient 's condition and/or to evaluate & treat vital organ system(s) failure or risk of failure. - Medical Decision Making 07/20/18 09:55 EKG: NSR rate of 100 bpm, axis nml, intervals nml, no st elevation or depressionm t waves upright Severe allergic reaction Pt states the ONLY new thing he took today that is new is SOLIQUA (he also took Trujeo) Given: Epi 0.3, Solumedrol, pepcid, IVF, Benadryl, neb pt reports improvement of his throat tightness Consult placed to Dr Wright 07/20/18 10:09 DD: Severe allergic reaction/anaplylaxis, DOUBT andioedema 2/2 lisinopril ( given diffuse urticaria) Labs pending CXR Admit 07/20/18 10:28 Laboratory Tests 07/20/18 09:38 WBC 6.4 Hgb 15.8 Hct 47.0 D Plt Count 277 D 07/20/18 10:52 Case reviewed with ICU resident Pt accepted to ICU 07/20/18 10:52 Laboratory Tests 07/20/18 07/20/18 09:38 09:38 INR 0.93 VBG pH 7.38 POC VBG pCO2 44.1 POC VBG pO2 59.6 H 07/20/18 11:04 Laboratory Tests 07/20/18 09:52 Sodium 136 Potassium 3.9 Chloride 103 Carbon Dioxide 27 BUN 18 Creatinine 1.0 Creatine Kinase 78 Troponin I < 0.02 this patient will require close monitoring Call placed to Dr Crowe Will admit to ICU clinical impression: Anaphylaxis, initial presentation
[2018-07-20 10:18] LABS: BASO % 0.6 % (0-2.0); EOS % 0.6 % (0-4.5); HEMOGLOBIN 15.8 GM/dL (11.7-16.9); MCH 28.5 pg (25.7-33.7); MCHC 33.7 g/dl (32.0-35.9); MEAN CELL VOLUME 84.6 fl (80-96); MEAN PLT VOLUME 8.5 fl (7.5-11.1); MONO % 5.9 % (3.8-10.2); NEUT % 44.9 % (42.8-82.8); PLATELET COUNT 277 K/MM3 (134-434); RBC 5.56 M/mm3 (4.00-5.60); RDW 13.2 % (11.9-15.9); WHITE BLOOD COUNT 6.4 K/mm3 (4.0-10.0)
[2018-07-20 10:31] LABS: INR 0.93 (0.83-1.09)
[2018-07-20 10:34] LABS: ACTIVATED PTT 26.2 SECONDS (25.2-36.5)
[2018-07-20 10:52] LABS: ALK PHOS 63 U/L (45-117); ANION GAP 6 MMOL/L (8-16); BILIRUBIN,TOTAL 0.4 mg/dL (0.2-1); BLOOD UREA NITROGEN 18 mg/dL (7-18); CALCIUM 8.6 mg/dL (8.5-10.1); CHLORIDE 103 mmol/L (98-107); CO2 27 mmol/L (21-32); MAGNESIUM 1.8 mg/dL (1.8-2.4); N-TERMINAL BNP 65.2 pg/ml (5-125); POTASSIUM 3.9 mmol/L (3.5-5.1); SGOT/AST 8 U/L (15-37); SGPT/ALT 24 U/L (13-61); SODIUM 136 mmol/L (136-145); TOT PROT 6.4 g/dl (6.4-8.2)
[2018-07-20 11:07] LABS: GLUCOSE,RANDOM 316 mg/dL (74-106)
[2018-07-20 13:07] VITALS: BMI 46.6
--- NOTE | 2018-07-20 13:37 | EKG ---
Test Reason : Blood Pressure : / mmHG Vent. Rate : 100 BPM Atrial Rate : 100 BPM P-R Int : 140 ms QRS Dur : 078 ms QT Int : 352 ms P-R-T Axes : 050 024 054 degrees QTc Int : 454 ms POOR DATA QUALITY, INTERPRETATION MAY BE ADVERSELY AFFECTED NORMAL SINUS RHYTHM NORMAL ECG WHEN COMPARED WITH ECG OF 24-JUN-2013 10:07, NO SIGNIFICANT CHANGE WAS FOUND Confirmed by TANG DEL VALLE, SANDEEP ([id number]) on 07/20/2018 1:37:06 PM Referred By: Confirmed By:SANDEEP BECKWITH MD
[2018-07-20] MEDS ORDERED: FAMOTIDINE 20 MG/50 ML IVPB 20 MG/50 ML MG IVPB SCH (13:43)
--- NOTE | 2018-07-20 14:08 | CONSULT ---
Consultation: REQUESTING PROVIDER: CONSULT REQUEST: We have been asked to medically evaluate this patient for Anaphylaxis. HISTORY OF PRESENT ILLNESS: The patient is a 53 yo m w/ PMH morbid obesity, DM, HTN, HLD who came into the ED after experiencing an allergic reaction to a medication today. The patient follows with Dr. Lobato for his DM and was recently started on Soliqua, which he took for the first time today at approximately 15 mins, the patient experienced a rapid onset of chest pain, SOB, eye, lip, throat and neck swelling. The patient also endorsed a raised, erythematous rash over his upper arms and chest. In the ED, he received epinephrine, benadryl, solu-medrol and pepcid with good effect. The patient began to develop the rash again approx 30mins later, requiring another round of epi. His rash returned a 3rd time, requiring a 3rd round of epinephrine, at which point ICU team was contacted. On interview, the patient states that he feels better and denies chest pain, abdominal pain. He does endorse mild shortness of breath associated w/ throat swelling, but states that his breathing is improved after treatment. REVIEW OF SYSTEMS: CONSTITUTIONAL: Absent: fever, chills, diaphoresis, generalized weakness, malaise, loss of appetite, weight change HEENT: Absent: rhinorrhea, nasal congestion, throat pain, ear pain, eye pain, visual changes CARDIOVASCULAR: Absent: syncope, palpitations, irregular heart rate, lightheadedness, peripheral edema RESPIRATORY: Absent: cough, orthopnea, wheezing, hemoptysis GASTROINTESTINAL: Absent: abdominal pain, abdominal distension, nausea, vomiting, diarrhea, constipation, melena, hematochezia GENITOURINARY: Absent: dysuria, frequency, urgency, hesitancy, hematuria, flank pain, genital pain MUSCULOSKELETAL: Absent: myalgia, arthralgia, joint swelling, back pain, neck pain SKIN: Absent: rash, itching, pallor HEMATOLOGIC/IMMUNOLOGIC: Absent: easy bleeding, easy bruising, lymphadenopathy, frequent infections ENDOCRINE: Absent: unexplained weight gain, unexplained weight loss, heat intolerance, cold intolerance NEUROLOGIC: Absent: headache, focal weakness or paresthesias, dizziness, unsteady gait, seizure, mental status changes, bladder or bowel incontinence PSYCHIATRIC: Absent: anxiety, depression, suicidal or homicidal ideation, hallucinations. PHYSICAL EXAMINATION Vital Signs - 24 hr 07/20/18 07/20/18 07/20/18 09:15 09:55 10:45 Temperature Pulse Rate 102 H Pulse Rate [ 94 H Apical] Respiratory 28 H 22 H Rate Blood Pressure 128/112 H Blood Pressure 127/68 [Left Arm] O2 Sat by Pulse 100 100 100 Oximetry (%) 07/20/18 07/20/18 11:29 12:45 Temperature 97.4 F L Pulse Rate 109 H Pulse Rate [ 101 H Apical] Respiratory 20 21 H Rate Blood Pressure 147/87 Blood Pressure 145/76 [Left Arm] O2 Sat by Pulse 98 100 Oximetry (%) GENERAL: Awake, alert, and fully oriented, in no acute distress. HEAD: Normal with no signs of trauma. EYES: Pupils equal, round and reactive to light, extraocular movements intact, sclera anicteric, conjunctiva clear. No lid lag. There is erythema and swelling around the eyes. EARS, NOSE, THROAT: Ears normal, nares patent, oropharynx clear without exudates. Moist mucous membranes. There is mild erythema and swelling around the orophanynx. The lips are swollen. Mallampati 3. NECK: Normal range of motion, supple without lymphadenopathy, JVD, or masses. LUNGS: Breath sounds equal, clear to auscultation bilaterally. No wheezes, and no crackles. No accessory muscle use. HEART: Regular rate and rhythm, normal S1 and S2 without murmur, rub or gallop. ABDOMEN: Soft, nontender, not distended, normoactive bowel sounds, no guarding, no rebound, no masses. No hepatomegaly or splenomegaly. LOWER EXTREMITIES: 2+ pulses, warm, well-perfused. No calf tenderness. No peripheral edema. NEUROLOGICAL: Cranial nerves II-X intact. Normal speech. SKIN: Warm, dry, normal turgor, no rashes or lesions noted. There is an erythematous, maculopapular rash over the patient's chest, neck and upper arms. The rash is raised and warm to the touch. Laboratory Results - last 24 hr 07/20/18 07/20/18 07/20/18 09:38 09:38 09:38 WBC 6.4 RBC 5.56 Hgb 15.8 Hct 47.0 D MCV 84.6 MCH 28.5 MCHC 33.7 RDW 13.2 Plt Count 277 D MPV 8.5 Absolute Neuts (auto) 2.9 Neutrophils % 44.9 D Lymphocytes % 48.0 H D Monocytes % 5.9 Eosinophils % 0.6 Basophils % 0.6 Nucleated RBC % 0 PT with INR 11.00 INR 0.93 PTT (Actin FS) 26.2 VBG pH POC VBG pCO2 POC VBG pO2 VBG HCO3 VBG O2 Sat (Sridhar) VBG Base Excess Sodium Potassium Chloride Carbon Dioxide Anion Gap BUN Creatinine Creat Clearance w eGFR Random Glucose Calcium Magnesium Total Bilirubin AST ALT Alkaline Phosphatase Creatine Kinase Troponin I B-Natriuretic Peptide Total Protein Albumin Blood Type A POSITIVE Antibody Screen Negative 07/20/18 07/20/18 07/20/18 09:38 09:52 12:21 WBC RBC Hgb Hct MCV MCH MCHC RDW Plt Count MPV Absolute Neuts (auto) Neutrophils % Lymphocytes % Monocytes % Eosinophils % Basophils % Nucleated RBC % PT with INR INR PTT (Actin FS) VBG pH 7.38 POC VBG pCO2 44.1 POC VBG pO2 59.6 H VBG HCO3 25.3 VBG O2 Sat (Sridhar) 89.0 H VBG Base Excess 0.3 Sodium 136 Potassium 3.9 Chloride 103 Carbon Dioxide 27 Anion Gap 6 L BUN 18 Creatinine 1.0 Creat Clearance w eGFR 77.58 Random Glucose 316 H* Calcium 8.6 Magnesium 1.8 Total Bilirubin 0.4 AST 8 L ALT 24 Alkaline Phosphatase 63 Creatine Kinase 78 Troponin I < 0.02 B-Natriuretic Peptide 65.2 Total Protein 6.4 Albumin 3.0 L Blood Type A POSITIVE Antibody Screen Active Medications Generic Name Dose Route Start Last Admin Trade Name Freq PRN Reason Stop Dose Admin Dexamethasone Sodium Phosphate 10 mg 07/20/18 13:44 Decadron Injection - IVPUSH Q6H-IV CHANI Diphenhydramine HCl 25 mg 07/20/18 13:44 Benadryl Injection - IVPUSH Q6H-IV CHANI Famotidine/Sodium Chloride 20 mg in 50 mls @ 100 mls/hr 07/20/18 13:43 Pepcid 20 Mg Premixed Ivpb - IVPB Q6H [facility] Insulin Aspart 1 vial 07/20/18 14:15 Novolog Vial Sliding Scale - SQ Q4H [facility] Protocol ASSESSMENT/PLAN: The patient is a 53 yo m w/ PMH morbid obesity, DM, HTN, HLD who came into the ED after experiencing an allergic reaction to a medication today. Neuro: -A&Ox3 -stable Pulmonary: -Monitor airway closely in the setting of swelling. Cardio: -Patient hemodynamically stable at this time. -will restart home meds when patient can eat GI: -no active issues. Immunology: -anaphylaxis likely 2/2 Soliqua -will monitor in ICU given refractory nature of initial allergic reaction requiring 3 rounds of EPI. -medication has approx. a 24 hr duration of effect; will observe until washout -s/p solu-medrol, epinephrine, pepcid, nebs in ED -will write for decadron 10mg q8h, benadryl 50mg q8h, pepcid BID -NPO until swelling improved; can have small sips of water FEN: -no fluids indicated; patient normotensive -monitor lytes -NPO until swelling improved; may have small sips of water. Prophy: - Dispo: We will continue to follow the patient. Thank you for this consultative opportunity. Visit type - Emergency Visit Emergency Visit: Yes ED Registration Date: 07/20/18 Care time: The patient presented to the Emergency Department on the above date and was hospitalized for further evaluation of their emergent condition. - New Patient This patient is new to me today: Yes Date on this admission: 07/20/18 - Critical Care Critical Care patient: Yes Total Critical Care Time (in minutes): 35 Critical Care Statement: The care of this patient involved high complexity decision making to prevent further life threatening deterioration of the patient 's condition and/or to evaluate & treat vital organ system(s) failure or risk of failure.
--- NOTE | 2018-07-20 14:17 | HP ---
Admitting History and Physical - Admission Chief Complaint: came in for swelling of face lips and difficulty breathing History of Present Illness: 53 yo M w a pmh of IDDM, HTN, and HLD who presents to the ER BIBEMS for Shortness of breath, difficulty breathing and mild chest pain. The patient took a new insulin formulation this morning - Soliqua - at 8:15 Am after which he started having an allergic reaction, became short of breath, developed an erythematous rash over his entire torso and his lips, tongue, throat and eyes started swelling up. The patient immediately called EMS and was brought to the ER to be evaluated. He received an aspirin and duonebs on route. In the ER he was immediately treated as if he were having angioedema and anaphylaxis and was given two large bore IV's where he got Epi, solumedrol, benadryl, pepcid, duonebs, and IV hydration. Within 5 minutes of the Epi the patient started feeling better and his throat began to clear up. His original Mallampati score was a 4 and now is a 3. The patient states nothing like this has ever happened to him before and to the best of his knowledge he has no known allergies. He denies recent fevers, chills, infections, prior hx of angioedema, anaphylaxis or heart attack History Source: Patient - Past Medical History Cardiovascular: Yes: HTN, Hyperlipdemia Endocrine: Yes: Diabetes Mellitus - Past Surgical History Past Surgical History: Yes: Cholecystectomy - Advance Directives Advance Directives: Yes: Health Care Proxy - Smoking History Smoking history: Never smoked Have you smoked in the past 12 months: No Aproximately how many cigarettes per day: 0 - Alcohol/Substance Use Hx Alcohol Use: No Home Medications - Allergies Allergies/Adverse Reactions: Allergies Allergy/AdvReac Type Severity Reaction Status Date / Time insulin glargine Allergy Difficulty Verified 07/20/18 09:59 [From Soliqua 100/33] Breathing lixisenatide Allergy Difficulty Verified 07/20/18 09:59 [From Soliqua 100/33] Breathing - Home Medications Home Medications: Ambulatory Orders Aspirin [ASA -] 81 mg PO DAILY 06/10/12 Simvastatin [Zocor -] 20 mg PO HS 06/10/12 Lisinopril [Prinivil] 10 mg PO HS 06/22/13 Ergocalciferol (Vitamin D2) [Vitamin D2] 50,000 unit PO WEEKLY 12/12/17 Insulin Lispro [Humalog Kwikpen U-200] 5 unit SQ AM 12/12/17 Insulin Lispro [Humalog Kwikpen U-200] 10 unit SQ HS 12/12/17 Sitagliptin Phos/Metformin HCl [Janumet 50-1,000 mg Tablet] 1 each PO BID Review of Systems - Review of Systems Neck: reports: No Symptoms Cardiovascular: reports: No Symptoms Respiratory: reports: No Symptoms Physical Examination Vital Signs: Vital Signs Temperature 97.4 F L 07/20/18 11:29 Pulse Rate 101 H 07/20/18 12:45 Respiratory Rate 21 H 07/20/18 12:45 Blood Pressure 145/76 07/20/18 12:45 O2 Sat by Pulse Oximetry (%) 100 07/20/18 12:45 Findings/Remarks: currently he is awake alert no shortness of breath still with lip and eyelid swelling Constitutional: Yes: Calm Eyes: Yes: Other (eyelid swelling) HENT: Yes: Other (lip swelling) Neck: Yes: Other Cardiovascular: Yes: Regular Rate and Rhythm, S1, S2 Respiratory: Yes: CTA Bilaterally Gastrointestinal: Yes: Normal Bowel Sounds, Soft, Abdomen, Obese Edema: Yes Integumentary: Yes: Other (no skin rash) Labs: CBC, BMP 07/20/18 09:38 07/20/18 09:52 Imaging - Results Chest X-ray: Report Reviewed (clear lung) Problem List - Problems (1) Angioedema Assessment/Plan: icu monitoring iv steroids benadryl and famotidine iv able to swallow water hold off ACEI ENT Consult lorena stanton endocrine eval Code(s): T78.3XXA - ANGIONEUROTIC EDEMA, INITIAL ENCOUNTER (2) Diabetes Assessment/Plan: bgm sliding scale endocrine evaluation Code(s): E11.9 - TYPE 2 DIABETES MELLITUS WITHOUT COMPLICATIONS Qualifiers: Diabetes mellitus type: type 2 (3) HTN (hypertension) Assessment/Plan: hold off ACEI for now Code(s): I10 - ESSENTIAL (PRIMARY) HYPERTENSION
--- NOTE | 2018-07-20 14:39 | PN ---
Teaching Attending Note Name of Resident: Kenji Dolan ATTENDING PHYSICIAN STATEMENT I saw and evaluated the patient. I reviewed the resident's note and discussed the case with the resident. I agree with the resident's findings and plan as documented. SUBJECTIVE: Pt seen and examined in the ICU. Briefly, 53yo male with h/o HTN, DM, hyperlipidemia who was admitted after developing an allergic reaction after starting a new diabetic medications. Developed a body rash, shortness of breath , dysphagia as well. No prior history of allergic reactions, given epinephrine, solumedrol with temporary improvement, transferred to ICU for further monitoring. OBJECTIVE: Vital Signs Period Temp Pulse Resp BP Sys/Baez Pulse Ox Last 24 Hr 97.4 F 94-109 20-28 127-147/68-112 98-100 Intake & Output 07/17/18 07/18/18 07/19/18 07/20/18 23:59 23:59 23:59 23:59 Weight 135.1 kg Gen: lip edema Neck: no stridor Heart: RRR Lung: decreased breath sounds at the bases Abd: soft, nontender Ext: no edema CBC, BMP 07/20/18 09:38 07/20/18 09:52 Active Medications Dexamethasone Sodium Phosphate (Decadron Injection -) 10 mg IVPUSH Q6H-IV [facility] Diphenhydramine HCl (Benadryl Injection -) 25 mg IVPUSH Q6H-IV [facility] Famotidine/Sodium Chloride (Pepcid 20 Mg Premixed Ivpb -) 20 mg in 50 mls @ 100 mls/hr IVPB Q6H [facility] Insulin Aspart (Novolog Vial Sliding Scale -) 1 vial SQ Q4H [facility]; Protocol ASSESSMENT AND PLAN: Acute Anaphylactic Reaction HTN DM Hyperlipidemia - IV decadron - benadryl - pepcid - O2 to keep SpO2 >90% - inhaled bronchodilators as needed - glucose control while on systemic steroids - DVT prophylaxis - continue ICU monitoring for airway monitoring
[2018-07-20] MEDS ORDERED: DEXAMETHASONE SOD PHOSPHATE 10 MG/1 ML VIAL IVPUSH SCH (15:00)
[2018-07-20] MEDS: DEXAMETHASONE SOD PHOSPHATE 10 MG/1 ML VIAL IVPUSH SCH ×2 (15:13→20:28)
[2018-07-20] MEDS: INSULIN SLIDING SCALE (NOVOLOG) 1 VIAL SQ SCH ×2 (17:11→22:28)
[2018-07-20] MEDS ORDERED: INSULIN (NOVOLOG) ASPART 100 UNITS/ML 10ML VIAL ONE ×2 (17:15→22:28)
[2018-07-20 18:41] VITALS: TEMP 98
[2018-07-20] MEDS: FAMOTIDINE 20 MG/50 ML IVPB 20 MG/50 ML MG IVPB SCH (22:29)
--- NOTE | 2018-07-21 00:35 | CONSULT ---
Consult Consult Specialty:: endocrine Referred by:: jazmyn holguin md Reason for Consultation:: dm2 - History of Present Illness Chief Complaint: allergic reaction to soliqua History of Present Illness: 53 yo M w a pmh of DM2, HTN, and HLD who presents to the ER BIBEMS for Shortness of breath, difficulty breathing and mild chest pain. The patient took a new insulin formulation for first time - Soliqua - in Am after which he started having an allergic reaction, became short of breath, developed an erythematous rash over his chest and upper torso,felt difficulty breathing, upon admission was given epi,benadryl and iv steroids as well as iv fluids,then improved immediately.he had not taken soliqua prior to this episode.denies nausea vomiting or chest pain. - Past Medical History Cardio/Vascular: Yes: HTN, Hyperlipdemia Endocrine: Yes: Diabetes Mellitus - Past Surgical History Past Surgical History: Yes: Cholecystectomy - Alcohol/Substance Use Hx Alcohol Use: No - Smoking History Smoking history: Never smoked Have you smoked in the past 12 months: No Aproximately how many cigarettes per day: 0 Home Medications - Allergies Allergies/Adverse Reactions: Allergies Allergy/AdvReac Type Severity Reaction Status Date / Time insulin glargine Allergy Difficulty Verified 07/20/18 09:59 [From Soliqua 100/33] Breathing lixisenatide Allergy Difficulty Verified 07/20/18 09:59 [From Soliqua 100/33] Breathing - Home Medications Home Medications: Ambulatory Orders Aspirin [ASA -] 81 mg PO DAILY 06/10/12 Simvastatin [Zocor -] 20 mg PO HS 06/10/12 Lisinopril [Prinivil] 10 mg PO HS 06/22/13 Ergocalciferol (Vitamin D2) [Vitamin D2] 50,000 unit PO WEEKLY 12/12/17 Insulin Lispro [Humalog Kwikpen U-200] 5 unit SQ AM 12/12/17 Insulin Lispro [Humalog Kwikpen U-200] 10 unit SQ HS 12/12/17 Sitagliptin Phos/Metformin HCl [Janumet 50-1,000 mg Tablet] 1 each PO BID Review of Systems - Review of Systems Constitutional: reports: Weakness Eyes: reports: No Symptoms HENT: reports: No Symptoms Neck: reports: No Symptoms Cardiovascular: reports: No Symptoms Respiratory: reports: No Symptoms Gastrointestinal: reports: No Symptoms Genitourinary: reports: No Symptoms Breasts: reports: No Symptoms Reported Musculoskeletal: reports: Extremity Pain, Muscle Pain, Muscle Weakness Physical Exam Vital Signs: Vital Signs Temperature 98.0 F 07/20/18 18:40 Pulse Rate 101 H 07/20/18 21:09 Respiratory Rate 20 07/20/18 21:09 Blood Pressure 141/81 07/20/18 21:09 O2 Sat by Pulse Oximetry (%) 100 07/20/18 21:00 Constitutional: Yes: Calm Eyes: Yes: EOM Intact HENT: Yes: Normocephalic Neck: Yes: Trachea Midline Cardiovascular: Yes: Regular Rate and Rhythm Respiratory: Yes: CTA Bilaterally Gastrointestinal: Yes: Normal Bowel Sounds ...Rectal Exam: Yes: Deferred Renal/: Yes: WNL Musculoskeletal: Yes: WNL, Muscle Weakness Extremities: Yes: WNL Edema: No Integumentary: Yes: Erythema, Rash Neurological: Yes: Alert, Oriented Labs: CBC, BMP 07/20/18 09:38 07/20/18 09:52 Problem List - Problems (1) Angioedema Code(s): T78.3XXA - ANGIONEUROTIC EDEMA, INITIAL ENCOUNTER (2) Rash Code(s): R21 - RASH AND OTHER NONSPECIFIC SKIN ERUPTION (3) Diabetes mellitus with hyperosmolarity Code(s): E11.00 - TYPE 2 DIAB W HYPROSM W/O NONKET HYPRGLY-HYPROS COMA ([facility]) Assessment/Plan Current Active Problems Anaphylaxis (Acute) Angioedema (Acute) Rash (Acute) dm 2 uncontrolled diabetic neuropathy Abnormal Lab Results 07/20/18 07/20/18 07/20/18 09:38 09:38 09:52 Lymphocytes % 48.0 H D POC VBG pO2 59.6 H VBG O2 Sat (Sridhar) 89.0 H Anion Gap 6 L Random Glucose 316 H* AST 8 L Albumin 3.0 L Laboratory Results - last 24 hr 07/20/18 07/20/18 07/20/18 09:38 09:38 09:38 WBC 6.4 RBC 5.56 Hgb 15.8 Hct 47.0 D MCV 84.6 MCH 28.5 MCHC 33.7 RDW 13.2 Plt Count 277 D MPV 8.5 Absolute Neuts (auto) 2.9 Neutrophils % 44.9 D Lymphocytes % 48.0 H D Monocytes % 5.9 Eosinophils % 0.6 Basophils % 0.6 Nucleated RBC % 0 PT with INR 11.00 INR 0.93 PTT (Actin FS) 26.2 VBG pH POC VBG pCO2 POC VBG pO2 VBG HCO3 VBG O2 Sat (Sridhar) VBG Base Excess Sodium Potassium Chloride Carbon Dioxide Anion Gap BUN Creatinine Creat Clearance w eGFR POC Glucometer Random Glucose Calcium Magnesium Total Bilirubin AST ALT Alkaline Phosphatase Creatine Kinase Troponin I B-Natriuretic Peptide Total Protein Albumin Blood Type A POSITIVE Antibody Screen Negative 07/20/18 07/20/18 07/20/18 09:38 09:52 12:21 WBC RBC Hgb Hct MCV MCH MCHC RDW Plt Count MPV Absolute Neuts (auto) Neutrophils % Lymphocytes % Monocytes % Eosinophils % Basophils % Nucleated RBC % PT with INR INR PTT (Actin FS) VBG pH 7.38 POC VBG pCO2 44.1 POC VBG pO2 59.6 H VBG HCO3 25.3 VBG O2 Sat (Sridhar) 89.0 H VBG Base Excess 0.3 Sodium 136 Potassium 3.9 Chloride 103 Carbon Dioxide 27 Anion Gap 6 L BUN 18 Creatinine 1.0 Creat Clearance w eGFR 77.58 POC Glucometer Random Glucose 316 H* Calcium 8.6 Magnesium 1.8 Total Bilirubin 0.4 AST 8 L ALT 24 Alkaline Phosphatase 63 Creatine Kinase 78 Troponin I < 0.02 B-Natriuretic Peptide 65.2 Total Protein 6.4 Albumin 3.0 L Blood Type A POSITIVE Antibody Screen 07/20/18 07/20/18 17:07 21:39 WBC RBC Hgb Hct MCV MCH MCHC RDW Plt Count MPV Absolute Neuts (auto) Neutrophils % Lymphocytes % Monocytes % Eosinophils % Basophils % Nucleated RBC % PT with INR INR PTT (Actin FS) VBG pH POC VBG pCO2 POC VBG pO2 VBG HCO3 VBG O2 Sat (Sridhar) VBG Base Excess Sodium Potassium Chloride Carbon Dioxide Anion Gap BUN Creatinine Creat Clearance w eGFR POC Glucometer 275 260 Random Glucose Calcium Magnesium Total Bilirubin AST ALT Alkaline Phosphatase Creatine Kinase Troponin I B-Natriuretic Peptide Total Protein Albumin Blood Type Antibody Screen plan: bgm qid novolog insulin doses hba1c iv fluids benadryl taper dose novolog 70/30 20 units bid levemir 15 units hs
[2018-07-21] MEDS: DEXAMETHASONE SOD PHOSPHATE 10 MG/1 ML VIAL IVPUSH SCH ×2 (03:36→09:08)
[2018-07-21] MEDS: INSULIN SLIDING SCALE (NOVOLOG) 1 VIAL SQ SCH ×3 (06:33→09:16)
[2018-07-21] MEDS ORDERED: INSULIN (NOVOLOG MIX 70/30) 100 UNITS/ML MDV SQ SCH (07:00)
[2018-07-21 07:14] LABS: INR 1.08 (0.83-1.09); PROTHROMBIN TIME (PATIENT) 12.7 SEC (9.7-13.0)
[2018-07-21 07:20] LABS: HEMATOCRIT 39.7 % (35.4-49); HEMOGLOBIN 13.4 GM/dL (11.7-16.9); MCH 28.4 pg (25.7-33.7); MCHC 33.7 g/dl (32.0-35.9); MEAN CELL VOLUME 84.4 fl (80-96); MEAN PLT VOLUME 8.6 fl (7.5-11.1); PLATELET COUNT 221 K/MM3 (134-434); RBC 4.71 M/mm3 (4.00-5.60); RDW 13.2 % (11.9-15.9); WHITE BLOOD COUNT 14.8 K/mm3 (4.0-10.0)
[2018-07-21 07:38] LABS: ALBUMIN 3.1 g/dl (3.4-5.0); ALK PHOS 56 U/L (45-117); ANION GAP 9 MMOL/L (8-16); BILIRUBIN,TOTAL 0.6 mg/dL (0.2-1); BLOOD UREA NITROGEN 16 mg/dL (7-18); CALCIUM 8.1 mg/dL (8.5-10.1); CHLORIDE 104 mmol/L (98-107); CO2 26 mmol/L (21-32); CREATININE 0.6 mg/dL (0.55-1.3); GLUCOSE,RANDOM 223 mg/dL (74-106); PHOSPHOROUS 3.7 mg/dL (2.5-4.9); SGOT/AST 11 U/L (15-37); SGPT/ALT 24 U/L (13-61); SODIUM 138 mmol/L (136-145); TOT PROT 6.4 g/dl (6.4-8.2)
[2018-07-21] MEDS: FAMOTIDINE 20 MG/50 ML IVPB 20 MG/50 ML MG IVPB SCH (09:09)
--- NOTE | 2018-07-21 09:48 | CONSULT ---
Admitting History and Physical - Primary Care Physician PCP: Ayaka Crowe - Admission History of Present Illness: 53yo male with h/o HTN, DM, hyperlipidemia admitted to ICU following an allergic reaction after starting a new diabetic medications. Symptoms included a body rash, shortness of breath, dysphagia . ENT assessment WNL. History Source: Patient Limitations to Obtaining History: No Limitations - Past Medical History Cardiovascular: Yes: HTN, Hyperlipdemia Endocrine: Yes: Diabetes Mellitus - Past Surgical History Past Surgical History: Yes: Cholecystectomy - Advance Directives Advance Directives: Yes: Health Care Proxy - Smoking History Smoking history: Never smoked Have you smoked in the past 12 months: No Aproximately how many cigarettes per day: 0 - Alcohol/Substance Use Hx Alcohol Use: No History - Admission Reason For Visit: ANAPHYLAXIS,ANGIOEDEMA - Diagnostics X-ray: Report Reviewed - General Mental Status: Alert and Oriented, Awake and Alert, Able to Follow Commands Attention: Intact Ability to Follow Directions: Excellent Head/Neck Control: WFL - Hearing Hearing: Normal Hearing Aide: No Speech Evaluation - Communication Primary Language: [place] Communication: Yes: Within Normal Limits Oral Expression Ability: Yes: No Impairment - Speech Production Able to Make Needs Known: Yes: WNL Intelligibility: Yes: WNL - Speech Characteristics Voice Loudness: Normal Voice Pitch: Yes: Normal Voice Phonatory-based Quality: Yes: Normal Speech Pattern: Normal Speech Clarity: < 100% Nasal Resonance: Normal Articulation: Yes: Precise Rate of Speech: Intact - Language/Auditory Comprehension Follows: Yes: 2 Stage Simple Commands - Language/Verbal Expression Able to Respond to Simple Queries: Yes: WNL Able to Communicate Wants and Needs: Yes: WNL Functional Communication Status: Yes: WNL Attention: Yes: Intact - Memory/Perception senior living Memory: Yes: WNL Short Term Memory: Yes: WNL - Swallow Evaluation/Bedside Assessment Current Nutritional Intake: NPO (except for water), Other Oral Secretions: Yes: WFL Dentition: Yes: Adequate Facial Symmetry at Rest: Symmetrical Facial Symmetry on Retraction: Symmetrical Facial Movement: Controlled Sensation: Normal Against Resistance Opening: Normal Against Resistance Closing: Normal Pucker Lips: Normal Smile: Normal Lingual Movement: Normal, Symmetric Lingual Speed of Movement: Normal Lingual Movement Strgth Against Opposition: Normal Lingual Movement Characteristics: Normal Velopharyngeal Movement: Normal Laryngeal Elevation: WFL Laryngeal Movement: Able to Palpate Rate of Intake: WFL Bolus Size: WFL Labial Seal: WFL Chewing: WFL Oral Prep Time: WFL A-P Transit: WFL Pocketing: None Timing of Swallow: WFL Coughing/Throat Clear: No Change in Voice: No Recommendations - Speech Evaluation, Impression/Plan Impression: Pt feels back to baseline. ENT eval WNL. Tolerated omayra cracker and thin water via 3 oz water test without signs or symptoms of dysphagia. - Dysphagia Impressions/Plan Swallowing Skills: WF Dysphagia Impressions: No Impairment *Silent aspiration: cannot be R/O at bedside Dysphagia Treatment Plan: OOB for meals, OOB for 1 h. after meals Recommendations: Other (Monitor tolerance) - Recommendations Diet Consistency: Regular Medication Administration: Whole with water Liquids: Thin Liquids
--- NOTE | 2018-07-21 09:53 | CONSULT ---
Consult - text type - Consultation Consultation Note: ENT consult 53 yo man had sudden attack of feeling his throat closing yesterday following initiation of a new medication. Responded to epinephrine and allergy therapy, and feels much better today. Still has slight throat discomfort, not much dyspnea. P/WD obese HM sitting comfortably in a chair, in NAD No stridor OC/OP normal Fiberoptic laryngoscopy: right DNS, mild yellow crusting in left nasal cavity anteriorly. Nasopharynx, hypopharynx, and endolarynx are normal. Imp: No evident pharyngolaryngeal pathology on today's evaluation Recommend reconsult if worsens No further care in my specialty is needed at this time
[2018-07-21] MEDS ORDERED: ENOXAPARIN NA (PORCINE) 40 MG/0.4 ML DISP.SYRIN SQ SCH (10:00)
[2018-07-21 10:10] LABS: EPI CELLS 1.4 /HPF (0-5/HPF); URINE APPEARANCE CLEAR; URINE BACTERIA 11.2 /hpf (NEGATIVE); URINE BILIRUBIN NEGATIVE (NEGATIVE); URINE CASTS 14 /lpf (0-8); URINE COLOR YELLOW; URINE GLUCOSE (UA) 3+ (NEGATIVE); URINE KETONE 2+ (NEGATIVE); URINE LEUK ESTERASE NEGATIVE (NEGATIVE); URINE NITRITE NEGATIVE (NEGATIVE); URINE PROTEIN 1+ (NEGATIVE); URINE RBC 1 /hpf (0-4); URINE UROBILINOGEN 0.2 mg/dL (0.2-1.0); URINE WBC 2 /hpf (0-5)
--- NOTE | 2018-07-21 10:29 | DS ---
Physical Examination Vital Signs: Vital Signs Temperature 98.0 F 07/20/18 18:40 Pulse Rate 96 H 07/21/18 08:00 Respiratory Rate 14 07/21/18 08:00 Blood Pressure 138/78 07/21/18 08:00 O2 Sat by Pulse Oximetry (%) 100 07/21/18 07:25 Constitutional: Yes: Calm HENT: Yes: Other (lip swelling and eyelid swelling resolved) Cardiovascular: Yes: Regular Rate and Rhythm, S1, S2 Respiratory: Yes: CTA Bilaterally Gastrointestinal: Yes: Normal Bowel Sounds, Soft, Abdomen, Obese Edema: Yes Neurological: Yes: Alert, Oriented Labs: CBC, BMP 07/21/18 05:30 07/21/18 05:30 Discharge Summary Reason For Visit: ANAPHYLAXIS,ANGIOEDEMA Current Active Problems Anaphylaxis (Acute) Angioedema (Acute) Rash (Acute) Hospital Course: - Admission Chief Complaint: came in for swelling of face lips and difficulty breathing History of Present Illness: 53 yo M w a pmh of IDDM, HTN, and HLD who presents to the ER BIBEMS for Shortness of breath, difficulty breathing and mild chest pain. The patient took a new insulin formulation this morning - Soliqua - at 8:15 Am after which he started having an allergic reaction, became short of breath, developed an erythematous rash over his entire torso and his lips, tongue, throat and eyes started swelling up. The patient immediately called EMS and was brought to the ER to be evaluated. He received an aspirin and duonebs on route. In the ER he was immediately treated as if he were having angioedema and anaphylaxis and was given two large bore IV's where he got Epi, solumedrol, benadryl, pepcid, duonebs, and IV hydration. Within 5 minutes of the Epi the patient started feeling better and his throat began to clear up. His original Mallampati score was a 4 and now is a 3. The patient states nothing like this has ever happened to him before and to the best of his knowledge he has no known allergies. He denies recent fevers, chills, infections, prior hx of angioedema, anaphylaxis or heart attack admitted to hospital : iCU monitoring on iv benadryl and iv steroids- benadryl and famotidine taper lip and eyelid swelling reduced seen by ENT no edema on exam on the larynx and pharynx seen by endocrine as well insulin adjusted Condition: Improved - Instructions Diet, Activity, Other Instructions: levemir 15 units HS novolg 20 units BIDAC Referrals: Stevie Lobato MD [Primary Care Provider] - 1 Week Disposition: HOME - Home Medications Comprehensive Discharge Medication List: Ambulatory Orders Aspirin [ASA -] 81 mg PO DAILY 06/10/12 Simvastatin [Zocor -] 20 mg PO HS 06/10/12 Lisinopril [Prinivil] 10 mg PO HS 06/22/13 Ergocalciferol (Vitamin D2) [Vitamin D2] 50,000 unit PO WEEKLY 12/12/17 Insulin Lispro [Humalog Kwikpen U-200] 5 unit SQ AM 12/12/17 Insulin Lispro [Humalog Kwikpen U-200] 10 unit SQ HS 12/12/17 Sitagliptin Phos/Metformin HCl [Janumet 50-1,000 mg Tablet] 1 each PO BID
--- NOTE | 2018-07-21 10:37 | PN ---
Progress Note (short form) - Note Progress Note: spoke to Dr schwartz plan stop levemir conitue novolog 70-30 - 20 units bidac meals and follow up with endocrine on tuesday Problem List - Problems (1) Angioedema Code(s): T78.3XXA - ANGIONEUROTIC EDEMA, INITIAL ENCOUNTER (2) Diabetes Code(s): E11.9 - TYPE 2 DIABETES MELLITUS WITHOUT COMPLICATIONS Qualifiers: Diabetes mellitus type: type 2 (3) HTN (hypertension) Code(s): I10 - ESSENTIAL (PRIMARY) HYPERTENSION
--- NOTE | 2018-07-21 11:24 | PN ---
Physical Exam: SUBJECTIVE: Patient seen this morning and reports he is feeling a lot better, no problems with breathing or swallowing water. OBJECTIVE: Vital Signs Temperature 98.0 F 07/20/18 18:40 Pulse Rate 96 H 07/21/18 08:00 Respiratory Rate 14 07/21/18 08:00 Blood Pressure 138/78 07/21/18 08:00 O2 Sat by Pulse Oximetry (%) 100 07/21/18 07:25 GENERAL: The patient is awake, alert, and fully oriented, in no acute distress. obese EYES: PERRL, extraocular movements intact, ENT:no swelling in the lips or around the throat NECK: Trachea midline, full range of motion, supple. LUNGS: Breath sounds equal, clear to auscultation bilaterally, no wheezes, no crackles, no accessory muscle use. HEART: Regular rate and rhythm, S1, S2 without murmur, rub or gallop. ABDOMEN: Soft, nontender, nondistended, normoactive bowel sounds EXTREMITIES: 2+ pulses, warm, well-perfused, no edema. PSYCH: Normal mood, normal affect. SKIN: Warm, dry, normal turgor, no rashes or lesions noted CBCD WBC 14.8 K/mm3 (4.0-10.0) H 07/21/18 05:30 RBC 4.71 M/mm3 (4.00-5.60) 07/21/18 05:30 Hgb 13.4 GM/dL (11.7-16.9) 07/21/18 05:30 Hct 39.7 % (35.4-49) D 07/21/18 05:30 MCV 84.4 fl (80-96) 07/21/18 05:30 MCHC 33.7 g/dl (32.0-35.9) 07/21/18 05:30 RDW 13.2 % (11.9-15.9) 07/21/18 05:30 Plt Count 221 K/MM3 (134-434) D 07/21/18 05:30 MPV 8.6 fl (7.5-11.1) 07/21/18 05:30 CMP Sodium 138 mmol/L (136-145) 07/21/18 05:30 Potassium 4.0 mmol/L (3.5-5.1) 07/21/18 05:30 Chloride 104 mmol/L (98-107) 07/21/18 05:30 Carbon Dioxide 26 mmol/L (21-32) 07/21/18 05:30 Anion Gap 9 MMOL/L (8-16) 07/21/18 05:30 BUN 16 mg/dL (7-18) 07/21/18 05:30 Creatinine 0.6 mg/dL (0.55-1.3) 07/21/18 05:30 Creat Clearance w eGFR 139.88 (>60) 07/21/18 05:30 Calcium 8.1 mg/dL (8.5-10.1) L 07/21/18 05:30 Total Bilirubin 0.6 mg/dL (0.2-1) 07/21/18 05:30 AST 11 U/L (15-37) L 07/21/18 05:30 ALT 24 U/L (13-61) 07/21/18 05:30 Alkaline Phosphatase 56 U/L (45-117) 07/21/18 05:30 Total Protein 6.4 g/dl (6.4-8.2) 07/21/18 05:30 Albumin 3.1 g/dl (3.4-5.0) L 07/21/18 05:30 Active Medications Dexamethasone Sodium Phosphate (Decadron Injection -) 10 mg IVPUSH Q6H-IV [facility] Last Admin: 07/21/18 09:08 Dose: 10 mg Enoxaparin Sodium (Lovenox -) 40 mg SQ DAILY [facility] Last Admin: 07/21/18 09:09 Dose: 40 mg Famotidine/Sodium Chloride (Pepcid 20 Mg Premixed Ivpb -) 20 mg in 50 mls @ 100 mls/hr IVPB BID [facility] Last Admin: 07/21/18 09:09 Dose: 100 mls/hr Insulin Aspart (Novolog Vial Sliding Scale -) 1 vial SQ Q4HPO [facility]; Protocol Last Admin: 07/21/18 09:16 Dose: 4 units Insulin Aspart (Novolog Mix 70/30 Vial) 20 units SQ BIDAC [facility] Last Admin: 07/21/18 06:37 Dose: Not Given Insulin Detemir (Levemir Vial) 15 units SQ [facility] ASSESSMENT/PLAN: Patient is a 53 y/o male with a history of morbid obesity, DM, HTN, and HLD who is admitted for anaphylactic shock. Neuro - at baseline - A & O x3, no swelling in face Cardio - hx HTN, continue home medications - stable blood pressures Pulm - airway patent, seen by ENT and without any edema - seen by speech and swallow and okay for feeds Endo - seen by Dr. Lobato - continue novolog 70/30 BID - levemir 15 units - benadryl taper - D/C solique - SS as needed Heme - dvt ppx early ambulation FEN - NS - can tolerate diabetic diet Dispo: home today Visit type - Emergency Visit Emergency Visit: No - New Patient This patient is new to me today: Yes Date on this admission: 07/21/18 - Critical Care Critical Care patient: Yes Total Critical Care Time (in minutes): 35 Critical Care Statement: The care of this patient involved high complexity decision making to prevent further life threatening deterioration of the patient 's condition and/or to evaluate & treat vital organ system(s) failure or risk of failure.
[2018-07-21 11:41] VITALS: BP 154/93; PULSE 120
--- NOTE | 2018-07-21 11:55 | PN ---
Teaching Attending Note Name of Resident: Rena Davies ATTENDING PHYSICIAN STATEMENT I saw and evaluated the patient. I reviewed the resident's note and discussed the case with the resident. I agree with the resident's findings and plan as documented. SUBJECTIVE: Pt seen and examined in the ICU. Feels back to normal. No shortness of breath or dysphagia. OBJECTIVE: Vital Signs Period Temp Pulse Resp BP Sys/Baez Pulse Ox Last 24 Hr 97.4 F-98.0 F 76-120 14-25 134-154/76-99 100-100 Intake & Output 07/18/18 07/19/18 07/20/18 07/21/18 23:59 23:59 23:59 23:59 Intake Total 0 0 Balance 0 0 Weight 135.1 kg Gen: NAD at rest Heart: RRR Lung: decreased breath sounds at the bases Abd: soft, nontender Ext: no edema CBC, BMP 07/21/18 05:30 07/21/18 05:30 Active Medications Dexamethasone Sodium Phosphate (Decadron Injection -) 10 mg IVPUSH Q6H-IV CHANI Last Admin: 07/21/18 09:08 Dose: 10 mg Enoxaparin Sodium (Lovenox -) 40 mg SQ DAILY [facility] Last Admin: 07/21/18 09:09 Dose: 40 mg Famotidine/Sodium Chloride (Pepcid 20 Mg Premixed Ivpb -) 20 mg in 50 mls @ 100 mls/hr IVPB BID [facility] Last Admin: 07/21/18 09:09 Dose: 100 mls/hr Insulin Aspart (Novolog Vial Sliding Scale -) 1 vial SQ Q4HPO [facility]; Protocol Last Admin: 07/21/18 09:16 Dose: 4 units Insulin Aspart (Novolog Mix 70/30 Vial) 20 units SQ BIDAC [facility] Last Admin: 07/21/18 06:37 Dose: Not Given Insulin Detemir (Levemir Vial) 15 units SQ HS [facility] ASSESSMENT AND PLAN: Acute Anaphylactic Reaction/Angioedema resolved HTN DM Hyperlipidemia - can change decadron to PO daily and give another 1-2 days - benadryl prn - O2 to keep SpO2 >90% - inhaled bronchodilators as needed - glucose control while on systemic steroids - DVT prophylaxis - can d/c home from pulmonary standpoint
[2018-07-21] MEDS ORDERED: INSULIN (LEVEMIR) 100 UNITS/ML UNITS SQ SCH (22:00)
[2018-07-22] MEDS ORDERED: DEXAMETHASONE 4 MG TABLET (FP) PO SCH (10:00)
== END 2018-07-21 12:00 | disposition home or self-care (01) | DRG 916 ==
LOC: JER 09:13 → JERBED 11:29 → JICU 12:46
PROVIDERS: ADMIT Family Medicine; ATTEND Family Medicine
PROC: 0CJS8ZZ Inspection of Larynx, Via Natural or Artificial Opening Endoscopic (ICD-10-PCS; principal; 2018-07-21)
DX: T78.3XXA Angioneurotic edema, initial encounter (principal); Z68.41 Body mass index [BMI] 40.0-44.9, adult; I10 Essential (primary) hypertension; E78.5 Hyperlipidemia, unspecified; Z79.4 Long term (current) use of insulin; T50.995A Adverse effect of other drugs, medicaments and biological substances, initial encounter; E66.01 Morbid (severe) obesity due to excess calories; E11.65 Type 2 diabetes mellitus with hyperglycemia; E11.40 Type 2 diabetes mellitus with diabetic neuropathy, unspecified
CPT/HCPCS: 36415; 71045-TC-FY; 80053; 81003; 82550; 82803; 82962; 83036; 83735; 83880; 84100; 84484; 85025; 85027; 85610; 85730; 86850; 86900; 86901; 93005; 93010; 99285-25; J1100

== ENCOUNTER 2021-09-17 23:50 | Emergency (ER) | payer BC, OTHER ==
[2021-09-17 23:58] VITALS: BP 162/92; PULSE 78; BMI 30.4
[2021-09-18] MEDS ORDERED: SODIUM CHLORIDE 0.9% 500 ML INFUS.BAG IV ONE (00:32)
[2021-09-18 01:51] LABS: EPI CELLS 13 /uL (0-25.1); HYALINE CASTS 4 /uL (0-3.1); URINE APPEARANCE TURBID; URINE BACTERIA 860 /uL (0-1359); URINE BILIRUBIN NEGATIVE (NEGATIVE); URINE COLOR ORANGE; URINE GLUCOSE (UA) 3+ (NEGATIVE); URINE KETONE NEGATIVE (NEGATIVE); URINE LEUK ESTERASE 1+ (NEGATIVE); URINE NITRITE NEGATIVE (NEGATIVE); URINE PROTEIN 3+ (NEGATIVE); URINE RBC 20851 /uL (0-23.9); URINE UROBILINOGEN 0.2 mg/dL (0.2-1.0); URINE WBC 3702 /uL (0-25.8)
[2021-09-18] MEDS ORDERED: CEFTRIAXONE 1 GM in DEXTROSE 5%-WATER - 100 ML IVPB ONE (01:58)
[2021-09-18] MEDS ORDERED: CEFTRIAXONE 1 GM/50 ML BAG ONE (02:00)
[2021-09-18 02:16] LABS: BASO % 0.7 % (0-2.0); EOS % 0.1 % (0-4.5); HEMOGLOBIN 13.9 GM/dL (11.7-16.9); LYMPH % 8.3 % (8-40); MCHC 33.9 g/dl (32.0-35.9); MEAN CELL VOLUME 85.3 fl (80-96); MEAN PLT VOLUME 8.2 fl (7.5-11.1); MONO % 8.8 % (3.8-10.2); NEUT % 82.1 % (42.8-82.8); PLATELET COUNT 243 10^3/uL (134-434); RBC 4.81 M/mm3 (4.00-5.60); WHITE BLOOD COUNT 14.6 K/mm3 (4.0-10.0)
[2021-09-18 02:25] LABS: INR 1.05 (0.83-1.09); PROTHROMBIN TIME (PATIENT) 12.1 SEC (9.7-13.0)
[2021-09-18 02:27] LABS: ACTIVATED PTT 30.1 SECONDS (25.2-36.5)
[2021-09-18 02:45] LABS: CALCIUM 8.4 mg/dL (8.5-10.1)
[2021-09-18 02:46] LABS: ALBUMIN 3.3 g/dl (3.4-5.0); BLOOD UREA NITROGEN 19.1 mg/dL (7-18)
[2021-09-18 02:49] LABS: CREATININE 0.9 mg/dL (0.55-1.3)
[2021-09-18 02:51] LABS: BILIRUBIN,TOTAL 0.4 mg/dL (0.2-1); TOT PROT 7.3 g/dl (6.4-8.2)
== END 2021-09-18 04:24 | disposition home or self-care (01) ==
LOC: JER 23:50
DX: N39.0 Urinary tract infection, site not specified (principal)
CPT/HCPCS: 36415; 80053; 81003; 82550; 85025; 85610; 85730; 87086; 87186; 99284-25

== ENCOUNTER 2022-08-25 12:47 | Emergency (ER) | payer OTHER, BC ==
[2022-08-25 12:53] VITALS: BP 160/82; PULSE 91; RESP 18; BMI 39.9
== END 2022-08-25 15:49 | disposition home or self-care (01) ==
LOC: JERFT 12:47
DX: M54.50 Low back pain, unspecified (principal); G89.11 Acute pain due to trauma; V43.52XA Car driver injured in collision with other type car in traffic accident, initial encounter; Y93.I9 Activity, other involving external motion; Y92.488 Other paved roadways as the place of occurrence of the external cause
CPT/HCPCS: 72070-TC-FY; 72100-TC-FY; 99283-25